=== PATIENT | female | born 1930 | race Caucasian/White ===

== ENCOUNTER 2017-08-19 08:56 | Outpatient (CLI) | payer MEDICARE | END 2017-08-19 08:57 | disposition EMS.NT | LOC: EMS 08:56 | PROVIDERS: ATTEND Surgery | DX: Z03.89 Encounter for observation for other suspected diseases and conditions ruled out (principal); W01.0XXA Fall on same level from slipping, tripping and stumbling without subsequent striking against object, initial encounter; Y92.009 Unspecified place in unspecified non-institutional (private) residence as the place of occurrence of the external cause ==

== ENCOUNTER 2017-08-22 11:13 | Outpatient (CLI) | payer MEDICARE ==
[2017-08-22 19:08] LABS: HEMOGLOBIN A1C 1.34 g/dL
== END 2017-08-22 11:14 | disposition home or self-care (01) ==
LOC: LAB.F 11:13
PROVIDERS: ATTEND Physician Assistant
DX: E11.9 Type 2 diabetes mellitus without complications (principal)
CPT/HCPCS: 36415; 83036

== ENCOUNTER 2018-04-23 15:08 | Emergency (ER) | payer MEDICARE, OTHER ==
--- NOTE | 2018-04-23 16:27 | ED Physician Documentation ---
PD HPI ABD PAIN - Stated complaint Stated Complaint: ABD PX/D/CONST - Chief complaint Chief Complaint: Abd Pain - History obtained from History obtained from: Patient - History of Present Illness Timing - onset: How many weeks ago (few) Timing - duration: Weeks (few) Timing - details: Gradual onset, Still present, Waxing and waning Quality: Sharp, Pain Location: Suprapubic, Other (perirectal area). No: All over / everywhere Radiation: No: Lower back, Left flank, Right flank Improved by: No: Eating Worsened by: Other (feels worse with BM). No: Eating Associated symptoms: Constipation. No: Fever, Nausea, Vomiting Similar symptoms before: Diagnosis (flagyl worked well along with stool softeners; dx of constipation) Review of Systems Constitutional: denies: Fever, Chills, Myalgias Nose: denies: Rhinorrhea / runny nose, Congestion Throat: denies: Sore throat Cardiac: denies: Palpitations Respiratory: denies: Dyspnea, Cough GI: reports: Other (rectal area pain and fullness.). denies: Abdominal Pain PD PAST MEDICAL HISTORY - Past Medical History Cardiovascular: None Respiratory: None Neuro: None GI: None - Present Medications Home Medications: Ambulatory Orders Medication Instructions Recorded Confirmed Hydrocortisone Acetate [Anucort-Hc] 25 mg RC BID #10 supp.rect 04/23/18 Lidocaine Ointment 5% [Xylocaine 1 gm TOP QID PRN #1 tube 04/23/18 Ointment 5%] - Allergies Allergies/Adverse Reactions: Allergies Allergy/AdvReac Type Severity Reaction Status Date / Time Unable to Assess Allergy Verified 04/23/18 15:26 PD ED PE NORMAL - Vitals Vital signs reviewed: Yes - General General: Alert and oriented X 3, No acute distress, Well developed/nourished - HEENT HEENT: PERRL, Moist mucous membranes - Neck Neck: Supple, no meningeal sign, No adenopathy - Cardiac Cardiac: RRR, No murmur - Respiratory Respiratory: Clear bilaterally - Abdomen Abdomen: Soft, Non tender - Female Female : Deferred - Rectal Rectal: Other (inflammation perirectal without breakdown, vesicles, nor focal fluctuance. ) Results - Vitals Vitals: Oxygen O2 Source Room air PD MEDICAL DECISION MAKING - ED course Complexity details: considered differential (no impaction on rectal and the perirectal swelling and inflammation appears like irritation and not infection and could be limiting her stool output due to pain. I did not feel hemorrhoids. ), d/w patient Departure - Departure Disposition: 01 Home, Self Care Clinical Impression: Rectal pain, Perirectal inflammation Condition: Stable Record reviewed to determine appropriate education?: Yes Follow-Up: Stephy Curtis PA [Primary Care Provider] - Prescriptions: Hydrocortisone Acetate [Anucort-Hc] 25 mg RC BID #10 supp.rect Lidocaine Ointment 5% [Xylocaine Ointment 5%] 1 gm TOP QID PRN #1 tube PRN Reason: Pain Comments: It looks to be just some inflammation in the perirectal area. You can use some lidocaine gel for discomfort. Also suggest a steroid suppository twice daily for the next 5 days to decrease inflammation. Use a stool softener such as Metamucil or docusate twice daily for the next few days. He can continue the Metamucil. The goal would be for soft stools that are oatmeal like and not too watery so that they come out easily without having to have pressure. Follow-up with your primary care later this week for recheck, call for an appointment tomorrow. You can use Tylenol 3-4 times a day if needed for pain. Discharge Date/Time: 04/23/18 17:58
[2018-04-23] MEDS ORDERED: ACETAMINOPHEN 325 MG TABLET PO STA (17:07)
[2018-04-23] MEDS ORDERED: HYDROCORTISONE 25 MG SUPPOSITORY PR STA (17:07)
[2018-04-23] MEDS ORDERED: LIDOCAINE OINTMENT 5% 35.44 GM TUBE TOP STA (17:07)
[2018-04-23 17:40] VITALS: BP 132/69
== END 2018-04-23 17:58 | disposition home or self-care (01) ==
LOC: ED 15:08
DX: K62.89 Other specified diseases of anus and rectum (principal)
CPT/HCPCS: 99283; A9270; J3490

== ENCOUNTER 2018-11-15 10:18 | Emergency (ER) | payer MEDICARE, OTHER ==
[2018-11-15 11:12] LABS: BASOPHILS % (AUTO) 0.6 %; EOSINOPHILS # (AUTO) 0.1 10^3/uL (0.0-0.7); EOSINOPHILS % (AUTO) 1.6 %; HGB - HEMOGLOBIN 13.9 g/dL (12.0-16.0); LYMPHOCYTES # (AUTO) 1.2 10^3/uL (1.5-3.5); LYMPHOCYTES % (AUTO) 15.8 %; MEAN CORPUSCULAR HEMOGLOBIN 31.8 pg (27.0-31.0); MEAN CORPUSCULAR HGB CONC 34.7 g/dL (32.0-36.0); MEAN CORPUSCULAR VOLUME 91.6 fL (81.0-99.0); MONOCYTES # (AUTO) 0.5 10^3/uL (0.0-1.0); MONOCYTES % (AUTO) 6.9 %; NEUTROPHILS # (AUTO) 5.9 10^3/uL (1.5-6.6); NEUTROPHILS % (AUTO) 75.1 %; PLT - PLATELET COUNT 226 10^3/uL (130-450); RED BLOOD COUNT 4.37 10^6/uL (4.20-5.40); RED CELL DISTRIBUTION WIDTH 14.3 % (12.0-15.0); WHITE BLOOD COUNT 7.9 x10^3/uL (4.8-10.8)
[2018-11-15 11:33] LABS: ALBUMIN 3.5 g/dL (3.2-5.5); ALBUMIN/GLOBULIN RATIO 0.8 (1.0-2.2); BILIRUBIN,TOTAL 1.7 mg/dL (0.2-1.0); CALCIUM 9.5 mg/dL (8.5-10.3); CREATININE 1.2 mg/dL (0.4-1.0); TOTAL PROTEIN 7.7 g/dL (6.7-8.2)
[2018-11-15 14:28] LABS: BILIRUBIN,URINE NEGATIVE (NEGATIVE); GLUCOSE, URINE (UA) NEGATIVE (NEGATIVE); KETONES,URINE (UA) NEGATIVE (NEGATIVE); LEUKOCYTE ESTERASE, URINE TRACE (NEGATIVE); NITRITE,URINE NEGATIVE (NEGATIVE); OCCULT BLOOD,URINE NEGATIVE (NEGATIVE); PH,URINE 6.5 PH (5.0-7.5); PROTEIN,URINE NEGATIVE (NEGATIVE); UROBILINOGEN,URINE 0.2 (NORMAL) E.U./dL (NORMAL)
[2018-11-15 14:33] LABS: CLARITY,URINE CLOUDY (CLEAR)
[2018-11-15 14:46] LABS: BACTERIA,URINE Moderate /HPF (None Seen); RBC,URINE 0-5 /HPF (0-5); SQUAMOUS EPITHELIAL CELL,UR MOD Squamous (<= Few)
--- NOTE | 2018-11-15 15:55 | CT Report ---
Reason: fall Procedure Date: 11/15/2018 Accession Number: [id number] / [id number] Procedure: CT - Head W/O CPT Code: FULL RESULT: EXAM: CT HEAD EXAM DATE: 11/15/2018 11:32 AM. CLINICAL HISTORY: Fall. COMPARISON: None. TECHNIQUE: Multiaxial CT images were obtained from the foramen magnum to the vertex. Reformats: Sagittal and coronal. IV contrast: None. In accordance with CT protocol optimization, one or more of the following dose reduction techniques were utilized for this exam: automated exposure control, adjustment of mA and/or KV based on patient size, or use of iterative reconstructive technique. FINDINGS: Parenchyma: No intraparenchymal hemorrhage. No evidence of mass, midline shift, or CT findings of infarction. Limon-white differentiation is distinct. Symmetric, mild periventricular hypodensity consistent with microvascular ischemic change. Extraaxial Spaces: Normal for age. No subdural or epidural collections identified. Ventricles: Normal in size and position. Sinuses and Orbits: Imaged paranasal sinuses, orbits, and mastoids show no significant abnormality. Bones: No evidence of fracture or calvarial defect. Other: None. IMPRESSION: No evidence of fracture or intracranial injury. Exam findings are within expected limits for age. RADIA
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
--- NOTE | 2018-11-15 16:33 | CT Report ---
Reason: fall Procedure Date: 11/15/2018 Accession Number: [id number] / [id number] Procedure: CT - Cervical Spine W/O CPT Code: FULL RESULT: EXAM: CT CERVICAL SPINE WITHOUT CONTRAST DATE: 11/15/2018 11:32 AM. HISTORY: Fall. COMPARISONS: None available. TECHNIQUE: Thin-section axial images were acquired of the cervical spine without contrast. Post-processing: Coronal and sagittal reformats. Other: None. In accordance with CT protocol optimization, one or more of the following dose reduction techniques were utilized for this exam: automated exposure control, adjustment of mA and/or KV based on patient size, or use of iterative reconstructive technique. FINDINGS: Alignment: No scoliosis or spondylolisthesis. Bones/discs: The bones are osteopenic. No acute fracture, subluxation, or compression deformity. Mild to moderate multilevel degenerative joint and disk disease. The craniocervical junction is intact. Musculature: Unremarkable. Other: The paravertebral and prevertebral soft tissues are unremarkable. The lung apices are clear. Heterogeneous appearance of the thyroid gland. Probable hypodense nodule in the left thyroid lobe measuring 1.5 x 1.2 cm, which could be further evaluated with ultrasound on a nonemergent basis. Calcified nodule in the left thyroid lobe measuring 3.5 mm. IMPRESSION: Osteopenia. No acute fracture or malalignment of the cervical spine. [facility]
[2018-11-15 16:54] VITALS: BP 155/80
== END 2018-11-15 16:54 | disposition home or self-care (01) ==
LOC: ED 10:18
DX: S00.531A Contusion of lip, initial encounter (principal); S00.81XA Abrasion of other part of head, initial encounter; W06.XXXA Fall from bed, initial encounter; Y92.009 Unspecified place in unspecified non-institutional (private) residence as the place of occurrence of the external cause; E11.9 Type 2 diabetes mellitus without complications; I10 Essential (primary) hypertension; F03.90 Unspecified dementia, unspecified severity, without behavioral disturbance, psychotic disturbance, mood disturbance, and anxiety; Z79.4 Long term (current) use of insulin; Z79.01 Long term (current) use of anticoagulants
CPT/HCPCS: 36415; 70450; 72125; 80053; 81001; 81003; 83690; 84484; 85025; 87086; 99283

== ENCOUNTER 2019-08-13 10:15 | Outpatient (CLI) | payer MEDICARE, OTHER ==
[2019-08-13 18:04] LABS: ALBUMIN 3.7 g/dL (3.2-5.5); ALBUMIN/GLOBULIN RATIO 0.9 (1.0-2.2); BILIRUBIN,TOTAL 1.5 mg/dL (0.2-1.0); CALCIUM 9.9 mg/dL (8.5-10.3); CREATININE 1.3 mg/dL (0.4-1.0); TOTAL PROTEIN 7.7 g/dL (6.7-8.2)
[2019-08-13 18:07] LABS: HB2 TOTAL 13.4 g/dL; HEMOGLOBIN A1C 0.62 g/dL; HEMOGLOBIN A1C % 6.4 % (4.6-6.2)
== END 2019-08-13 10:16 | disposition home or self-care (01) ==
LOC: LAB.S 10:15
PROVIDERS: ATTEND Physician Assistant
DX: E11.9 Type 2 diabetes mellitus without complications (principal)
CPT/HCPCS: 36415; 80053; 83036

== ENCOUNTER 2020-01-02 10:10 | Outpatient (CLI) | payer MEDICARE, OTHER ==
--- NOTE | 2020-01-02 16:47 | CONSULTATION NOTE ---
Palliative Care Consultation - Referral Referring Provider: LILIANE Carrasco Time of Visit: 4829-3027 Referral setting: Home Referral Reason: Recurrent UTIs/Dementia - Information Sources Records reviewed: Previous records reviewed History/Review of Systems obtained from: Patient, Family (daughter/caregiver/ELIAN Campuzano) Exam limitations: Clinical condition (short term memory deficits due to dementia) - History of Present Illness Brief History of Present Illness: This is a quinn 89-year-old who is seen for initial palliative care consultation in her home with her daughter/D SANJIV Campuzano present. She has a history of moderate dementia and frequent urinary tract infections with a history of one episode of sepsis. The patient began to have a noted decline in August 2019 per her daughter's report. She has had approximately 3 urinary tract infections in the last 4 months. Prior to August 2019 the patient was not getting urinary tract infections. She is incontinent of bladder. There is no reported skin breakdown per the daughter. They routinely use Butt paste [id number] for application for skin protection. She is also had a decline in her overall appetite in the last few months. She enjoys breakfast and would be happy to have that in the morning in the evening. Her son-in-law is a wonderful montes and she enjoys the waffles that he prepares. She is a longstanding history of diabetes mellitus type 2 and is insulin- dependent with chronic kidney disease type III. Her blood glucose levels are monitored twice a day with an average range in the 150s. No reported episodes of hypoglycemia. In the mornings intermittently the patient will complain of some mild nausea that will resolve after eating. Her daughter/DPTatianna MONTEIRO's concern is in regards to the recent frequent UTIs. The patient does not like cranberry juice and will not consume it. She keeps a bottle of water by her chair and will drink water or iced tea throughout the day. Medical/Surgical History - Past Medical History Cardiovascular: reports: Hypertension, High cholesterol, Coronary artery disease, Deep vein thrombosis (LLE DVT), Other (Paroxysmal afib) Respiratory: reports: None Neuro: Dementia Endocrine/Autoimmune: reports: Type 2 diabetes (insulin dependent) GI: reports: None [employer]: reports: Ovarian cancer, Breast cancer : reports: Other (Frequent UTIs; CKD III) HEENT: reports: Chronic hearing loss Psych: reports: Depression Derm: reports: None Other Past Medical History: Hypomagnesemia - Past Surgical History General: reports: Cholecystectomy, Other (repair of ventral hernia; exploratory laprotomy) /[employer]: reports: Hysterectomy (total hysterectomy with bilateral salpingo- oophorectomy), Other (lumpectomy of left breast) Cardiovascular: reports: Coronary stent - Substance History Use: Uses substance without health or social issues: Tobacco (Former smoker and she began around age 21 and smoked for 20 years before quiting.), Alcohol (she drinks a glass of wine "once in a while.") Social History - Living Situation Living arrangement: At home Living Situation: With family (lives in a farmhouse with her daughter/DPTHANIA Campuzano and Tatianna's .) Support System: Patient grew up in [place], [place]. She then relocated to [place]. After her second she moved to [facility] at the encouragement of her loaiwjnn-so-oik where she would live with her, son, Akash on [facility] and his 5 days a week and then would spend the weekends with her daughter Tatianna. The patient enjoyed having a quieter life from her previous lifestyle and would be able to relax during the week and then enjoy the hustle and bustle of her daughter's home visiting with her great-grandson on the weekends. She has always been vivacious, friendly, and as her daughter puts it "leader of the pack." The patient was someone that was never one to sit down and was always on the go. She has friends all over. She continued to remain friends with approximately 8 women that at she attended high school with throughout her life. Only 2 of those women remain alive. There was an argument that resulted in the patient moving out of her son's Akash's house and moving in fully with her daughter Ttaianna over 2 years ago. Akash now only visits his mother twice a year. He does not offer Tatianna support. Tatianna's is extremely supportive and is very fond of his jbdksz-ji-odw and assists when he can. Tatianna retired from her job to attend to her mother and grandson. She has found this full the filling for her. Her other brother, Jeffry, relocated to [place] and will call to speak to the patient weekly and is available emotionally to provide support for Tatianna. Res Care comes to the home twice a week for 2 hours and will assist with showering and allows Tatianna to leave for local errands. The patient has 3 children, 2 boys and 1 girl. She is . Family History - Family History Family History: Mother: (Father with scoliosis of spine), Hypertension, Father: , Sister: , Cancer (malignant tumor of colon) Medications/Allergies - Medications Home Medications: Ambulatory Orders Medication Instructions Recorded Confirmed Apixaban [Eliquis] 5 mg PO BID 11/15/18 01/02/20 Cholecalciferol (Vitamin D3) 1 cap PO DAILY 11/15/18 11/15/18 [Vitamin D3] Cyanocobalamin (Vitamin B-12) 11/15/18 [Vitamin B-12] Insulin Glargine [Lantus Solostar] 35 units SQ BID 11/15/18 11/15/18 L.acid/L.casei/B.bif/B.colt/Fos 1 PO DAILY 11/15/18 [Probiotic Blend Capsule] Losartan [Cozaar] 100 mg PO DAILY 11/15/18 11/15/18 Metoprolol Succinate 200 mg PO DAILY 11/15/18 11/15/18 Multivitamin [Multiple Vitamins] 1 PO DAILY 11/15/18 [place]-3/Dha/Epa/Fish Oil [Fish Oil 1 PO DAILY 11/15/18 1,000 mg Softgel] Sertraline [Zoloft] 50 mg PO DAILY 11/15/18 11/15/18 hydroCHLOROthiazide 25 mg PO DAILY 11/15/18 11/15/18 [Hydrochlorothiazide] Omeprazole 40 mg PO DAILY 01/02/20 01/02/20 Tumeric 500 mg PO DAILY 01/02/20 - Allergies Allergies/Adverse Reactions: Allergies Allergy/AdvReac Type Severity Reaction Status Date / Time ciprofloxacin [From Cipro] Allergy Hives Verified 01/02/20 16:52 atorvastatin AdvReac Unknown Verified 01/02/20 16:52 Corticosteroids AdvReac Unknown Verified 01/02/20 16:52 (Glucocorticoids) metformin AdvReac Unknown Verified 01/02/20 16:52 Review of Systems - Constitutional Constitutional: reports: Fatigue, Weight stable (clothes continue to fit well) - Eyes Eyes: denies: Vision loss - Ears, Nose & Throat Ears, Nose & Throat: reports: Hearing loss, Hearing aids (does not wear her hearing aids) - Cardiovascular Cardiovascular: denies: Palpitations, Chest pain, Edema - Respiratory Respiratory: denies: Cough, Wheezing - Gastrointestinal Gastrointestinal: reports: Nausea (intermittent in the mornings that resolve with consumption of food). denies: Abdominal pain, Constipation, Vomiting - Genitourinary Genitourinary: reports: Frequency, Incontinence. denies: Dysuria - Musculoskeletal Musculoskeletal: reports: Joint pain (left knee that resolved), Assistive devices (ambulates with rollator) - Integumentary Integumentary: denies: Rash - Neurological Neurological: reports: Memory problems - Psychiatric Psychiatric: reports: Depression - Endocrine Endocrine: reports: Diabetes type 2 - Hematologic/Lymphatic Hematologic/Lymphatic: reports: Recurrent infections (Urinary tract infections since 08/2019) - All Other Systems All Other Systems: reports: Reviewed and negative Physical Exam - Vital Signs Temperature: 36.1 C Pulse Rate: 64 O2 Saturation: 96 (on RA) Blood Pressure: 118/63 (left wrist cuff) - Physical Exam General Appearance: positive: No acute distress, Alert, Other (OOB in recliner, well groomed, mild urine odor noted) Eyes Bilateral: positive: Normal inspection, Conjunctivae nml ENT: positive: Other (missing dentition, +MMM, +hard of hearing without hearing aids in place) Neck: positive: Nml inspection, Trachea midline, Other (no LAD) Cardiovascular: positive: Regular rate & rhythm, No murmur. negative: Decreased pulse(s) Respiratory: positive: No respiratory distress, Breath sounds nml. negative: Rales, Rhonchi Abdomen: positive: Non-tender, Soft, Nml bowel sounds, Other (+round). negative: Distended Skin: negative: Bruising, Rash Extremities: positive: Full ROM. negative: No pedal edema, Joint swelling Neurologic/Psychiatric: positive: Mood/affect nml, Disoriented to time (unable to state season or year) Palliative Care - POLST Patient has POLST: Yes POLST Status: DNR, Comfort Measures Pain: Pain improved (left knee) Tiredness/Fatigue: Severe (7-10) (sleeps from 9pm to 8AM and will have appx 2 naps per day) Drowsiness/Sedation: None Nausea: Moderate (4-6) Anorexia: None Dyspnea: None Depression: Moderate (4-6) Anxiety: Moderate (4-6) Feelings of wellbeing/Perceived Quality of Life: Fair Sleep: Sleeps well Constipation: No Performance Status: Patient is ambulatory and uses a Rollator within the home. There is good open space within the home to allow for the use of the Rollator. She had a recent fall last week in the bathroom without injury. She also has a transport wheelchair for use out in the community. She requires assistance with grooming and hygiene. She is incontinent of bladder. FAST 6D - Palliative Care Discussion: The patient and daughter both recognize the patient's overall functional and cogntivie decline. The patient herself recognizes that she is not as functional as she used to be and can often get discouraged by this. She finds enjoyment with foods that bring her pleasure such as sweets that are made by her son-in-law. She also has a wonderful relationship with her great grandson who is 10 years of age whom he calls Curly. When the grandson comes to visit they are often easily engaged. Otherwise, the patient is no longer able to read or follow shows due to her cognitive impairment. She relayed the loss of friends given the advancement of her age and has appropriate morning regarding this. Tatianna has support emotionally from her brother Jeffry as well as her . Tatianna recognizes the needs to provide self care in order to care for the patient. Both the patient and her daughter/DPOA wish to focus on comfort measures as the goal of care with a transition to hospice when appropriate. Results - Lab Results Lab results reviewed: Yes Lab and Imaging Results: 12/06/2018: HgA1C 8.5%, GFR 37 Impression and Recommendations - Palliative Care Impression: This is a quinn 89-year-old female who has moderately severe dementia, insulin- dependent diabetes mellitus, with a slowly progressive cognitive and functional decline. Palliative care to continue to provide symptom management support, anticipatory guidance and a transition to hospice when appropriate. Recommendations/Counseling Done: 1. Dementia. Chronic. Progressive. Supportive Care. Fall precautions. No behavioral concerns reported daughter. Encouraged use of rollator with ambulation. Given the patient's advanced age, dementia and chronic co- morbidities, a gradual decline is expected. Normalized taking intermittent naps during the day due to fatigue with patient as she is overall happy and doing tasks she enjoys. Directed daughter/DPOA to Alzheimer's association website for additional resources. 2. Frequent UTIs. Encouraged oral hydration during the day and pericare due to urinary incontinence. Recommended use of poise pads overnight with depends to control urinary saturation. Consider trial of concentrated cranberry supplement or d'mannose for UTI prophylaxis. 3. Insulin Dependent Type II Diabetes Mellitus. No hypoglycemic awareness. Given advanced age and co-morbidities at higher risk of hypoglycemia with associated higher morbidity. Goal HgA1C 7-8% given advanced age. If patient oral intake decreases will focus on dose reduction of insulin to avoid hypoglycemia events. 4. CKD stage III. Multifactorial due to age, diabetes mellitus type II and HTN. Avoid nephrotoxic medications. 5. HTN with history of paroxysmal afib. No cardiac awareness. Continue losartan for HTN and metoprolol for rate control. On anticoagulation with eliquis. Continue to monitor BP trends and adjust antihypertensive medications as needed. 6. Advanced care planning. Previous pulsed from [place] dated 2015 indicated DNAR are with selective treatment. Reviewed goals of care today with patient and daughter/D POA with a goal to focus on comfort and transition to hospice when appropriate. Reviewed gradual decline regarding dementia and hospice criteria related to the diagnosis with the daughter. [place] POLST completed with selection of DNAR are with comfort focused treatment and recommendation to daughter to place on the fridge in the home as well as to provide copies to her siblings and the patient's primary care provider. Previous POLST voided. Time Spent: Total time spent 110 minutes with greater than 50% of time spent in counseling family and patient regarding escalation vs de-escalation of care, palliative/hospice philosophy as well as care coordination, examination of patient, review of symptom management and anticipatory guidance. Disclaimer: The chart note was formulated using voice recognition technology and unfortunately sound alike errors may occur.
== END 2020-01-02 10:11 | disposition home or self-care (01) ==
LOC: PC 10:10
PROVIDERS: ATTEND Nurse Practitioner Family
DX: Z51.5 Encounter for palliative care (principal); F03.90 Unspecified dementia, unspecified severity, without behavioral disturbance, psychotic disturbance, mood disturbance, and anxiety; R32 Unspecified urinary incontinence; E11.22 Type 2 diabetes mellitus with diabetic chronic kidney disease; I12.9 Hypertensive chronic kidney disease with stage 1 through stage 4 chronic kidney disease, or unspecified chronic kidney disease; N18.3 Chronic kidney disease, stage 3 (moderate); I48.0 Paroxysmal atrial fibrillation; R53.83 Other fatigue; Z79.899 Other long term (current) drug therapy; Z79.01 Long term (current) use of anticoagulants; Z79.4 Long term (current) use of insulin; Z87.440 Personal history of urinary (tract) infections; Z87.891 Personal history of nicotine dependence; Z66 Do not resuscitate
CPT/HCPCS: 99345

== ENCOUNTER 2020-01-29 10:05 | Outpatient (CLI) | payer MEDICARE, OTHER ==
--- NOTE | 2020-01-29 17:47 | CONSULTATION NOTE ---
Palliative Care Follow Up - Referral Referring Provider: Valencia Curtis PA-C Time of Visit: 4854-2105 Referral setting: Home Referral Reason: Dementia and Recurrent UTIs - Information Sources Records reviewed: Previous records reviewed History/Review of Systems obtained from: Patient, Family (daughter/ELIAN Campuzano) Exam limitations: Clinical condition (short term memory deficits due to dementia) - History of Present Illness Update Brief HPI Update: This is a quinn 89-year-old woman who is seen in follow-up today for her moderate dementia and frequent urinary tract infections with a history of one episode of sepsis. Patient recently has had 3 urinary tract infections in the last 4 to 5 months. Prior to August 2019 the patient with this without a history of frequent urinary tract infections. She is incontinent of bladder. On last palliative care visit recommended initiation of cranberry concentrate capsules 500 mg to take 1 capsule twice daily for UTI prophylaxis. Patient has been tolerating well. Patient denies increased urinary frequency or dysuria. There is no evidence of skin breakdown and the patient's daughter continue uses Butt paste [id number] periodically for skin protection. The patient has a longstanding history of diabetes mellitus type 2 and is insulin-dependent with chronic kidney disease. Her blood glucose recently has ranged from 1 37-1 92. No reported episodes of hypoglycemia. The patient has had a stabilization of her appetite and with the patient and the daughter reports it is "good." The patient herself comments on the wonderful things that her son-in-law prepares as he is a wonderful montes. She continues to enjoy a breakfast foods routinely. She typically is also having a snack before bed limiting any episodes of hypoglycemia. Past medical history includes hypertension, hyperlipidemia, coronary artery disease, left lower extremity DVT, paroxysmal A. fib, dementia, type 2 diabetes insulin-dependent, ovarian cancer, breast cancer, frequent urinary tract infections, chronic kidney disease stage III, depression. Social History - Living Situation Living arrangement: At home Living Situation: With family (daughter/ELIAN Campuzano and Aaron HERNANDEZ) Support System: Patient resides in a farm house with her daughter and son-in-law. The patient has 3 children, 2 boys and 1 girl. She is . Rest care comes to the home twice a week for 2 hours of assist with showering and allows Tatianna to leave the home for local errands. 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 The patient, her daughter, and her great-grandson went out to [place] recently and [place] ferry. The patient herself looks forward to these outings. The family has a dog named Enriqueta whom the patient is quite fund of. Medications/Allergies - Medications Home Medications: Ambulatory Orders Medication Instructions Recorded Confirmed Apixaban [Eliquis] 5 mg PO BID 11/15/18 01/02/20 Cholecalciferol (Vitamin D3) 1 cap PO DAILY 11/15/18 11/15/18 [Vitamin D3] Cyanocobalamin (Vitamin B-12) 11/15/18 [Vitamin B-12] Insulin Glargine [Lantus Solostar] 35 units SQ BID 11/15/18 11/15/18 L.acid/L.casei/B.bif/B.colt/Fos 1 PO DAILY 11/15/18 [Probiotic Blend Capsule] Losartan [Cozaar] 100 mg PO DAILY 11/15/18 11/15/18 Metoprolol Succinate 200 mg PO DAILY 11/15/18 11/15/18 Multivitamin [Multiple Vitamins] 1 PO DAILY 11/15/18 [place]-3/Dha/Epa/Fish Oil [Fish Oil 1 PO DAILY 11/15/18 1,000 mg Softgel] Sertraline [Zoloft] 50 mg PO DAILY 11/15/18 11/15/18 hydroCHLOROthiazide 25 mg PO DAILY 11/15/18 11/15/18 [Hydrochlorothiazide] Omeprazole 40 mg PO DAILY 01/02/20 01/02/20 Tumeric 500 mg PO DAILY 01/02/20 Cranberry 500 mg PO BID 01/29/20 01/29/20 - Allergies Allergies/Adverse Reactions: Allergies Allergy/AdvReac Type Severity Reaction Status Date / Time ciprofloxacin [From Cipro] Allergy Hives Verified 01/02/20 16:52 atorvastatin AdvReac Unknown Verified 01/02/20 16:52 Corticosteroids AdvReac Unknown Verified 01/02/20 16:52 (Glucocorticoids) metformin AdvReac Unknown Verified 01/02/20 16:52 Review of Systems - Constitutional Constitutional: reports: Fatigue, Weight stable - Eyes Eyes: reports: Vision loss - Ears, Nose & Throat Ears, Nose & Throat: reports: Hearing loss, Hearing aids (typically does not wear them) - Cardiovascular Cardiovascular: reports: Lightheadedness (occasionally when standing). denies: Palpitations, Chest pain - Respiratory Respiratory: denies: Cough, Wheezing - Genitourinary Genitourinary: reports: Incontinence. denies: Dysuria, Frequency - Musculoskeletal Musculoskeletal: reports: Assistive devices. denies: Joint pain - Integumentary Integumentary: denies: Rash - Neurological Neurological: reports: Memory problems. denies: Headache - Psychiatric Psychiatric: reports: Depression - Endocrine Endocrine: reports: Diabetes type 2 - Hematologic/Lymphatic Hematologic/Lymphatic: reports: Recurrent infections (UTIs since 08/2019) - All Other Systems All Other Systems: reports: Reviewed and negative Physical Exam - Vital Signs Temperature: 36.4 C Pulse Rate: 83 O2 Saturation: 94 (on RA at rest) Blood Pressure: 108/68 (right wrist cuff sitting) - Physical Exam General Appearance: positive: No acute distress, Alert, Other (sitting in recliner in common area, well groomed, mild urine odor noted) Eyes Bilateral: positive: Normal inspection ENT: positive: No signs of dehydration, Other (missing dentition, +[place]) Neck: positive: Trachea midline. negative: Carotid bruit Cardiovascular: positive: Regular rate & rhythm, No murmur Respiratory: positive: No respiratory distress, Breath sounds nml Abdomen: positive: Non-tender, Soft, Nml bowel sounds Skin: positive: No symptoms Extremities: positive: Full ROM, No pedal edema Neurologic/Psychiatric: positive: Mood/affect nml, Disoriented to time Comments/Other: standin/75, HR 80 without reported dizziness with right wrist cuff Palliative Care - POLST Patient has POLST: Yes POLST Status: DNR, Comfort Measures Pain: No pain Tiredness/Fatigue: Moderate (4-6) (takes naps during the day) Nausea: None Anorexia: None Depression: None Feelings of wellbeing/Perceived Quality of Life: Fair Sleep: Sleeps well Constipation: No Performance Status: Patient is ambulatory and uses a Rollator within the home. No recent falls reported. She uses a transport wheelchair out in the community. She requires assistance with grooming and hygiene. She is incontinent of bladder. FAST 6D - Palliative Care Discussion: Both the patient and her daughter/D POA are in good spirits today. There moods have been afflicted with the recent change in the weather as well as some local interactions. When the weather is nice and warmer they often go on outings. The patient herself likes to be outdoors. She continues to find enjoyment with foods that are made by her son-in-law. She recently had a visit from 1 of her daughters friends who also has dementia. She also has a wonderful relationship with her great-grandson who is 11 years of age whom he calls . When the grandson visits almost on a daily basis they are easily engaged and watch shows together like mine craft. This gives the patient great jackelyn and something to look forward to. Although the patient has had an overall functional and cognitive decline she is recently stabilized and both she and her daughter wish to focus on comfort measures as a goal of care with a transition to hospice when appropriate. Impression and Recommendations - Palliative Care Impression: This is an 89-year-old female with moderately severe dementia, insulin-dependent diabetes, with a slow, progressive cognitive and functional decline. Patient has tolerated introduction of cranberry concentrate supplementation for UTI prophylaxis. No reports of urinary symptoms. Palliative care to continue to provide symptom management support, anticipatory guidance and transition to hospice when appropriate. Recommendations/Counseling Done: 1. Frequent UTIs. No recent UTI reported. Continue to encourage oral hydration throughout the day and stefan-care due to urinary incontinence. Daughter has had good success with use of poise pads overnight with control of urinary saturation. Continue concentrated cranberry supplementation 5 00mg take 1 capsule twice daily for UTI prophylaxis. Provided lab slip and urinary specimen cup as well as nun's cap For daughter for future use if patient develops urinary tract symptoms such as fever, dysuria, increased confusion. Advised daughter to notify [facility] of symptoms so these may be addressed. and reviewed collection of clean-catch urine. Daughter would take specimen to [facility] lab. 2. Dementia. Chronic. Progressive. Supportive care. Fall precautions. No overall behavioral concerns reported by the daughter. Given the patient's advanced age, dementia, and chronic comorbidities, a gradual decline as expected. 3. Insulin-dependent type 2 diabetes mellitus. No hypoglycemic awareness. Patient has consuming a snack prior to bed limiting nausea in the mornings. Goal hemoglobin A1c is 7 to 8% given patient's advanced age. Continue current medication regimen as ordered. Presently the patient's oral intake is well controlled. If patient's intake begins to decrease would focus on dose reduction of medications to avoid hypoglycemic events. 4. Advanced care planning. POLST previously completed and is in the home as DN AR and comfort measures. Patient wishes to focus on quality of life. She is looking forward to upcoming outings given the recent change in weather as well as her great grandson's visits. Both the patient and her daughter wish to focus on comfort interventions in the future. F/u PRN at this time as patient does not have acute needs or high symptom burden. Daughter/DPOA and patient is aware that palliative care is available if there is a sudden change in condition or if there is further support and assistance needed in advanced care planning for problem solving as needed. Time Spent: Total time spent 45 minutes with greater than 50% of this spent in counseling and coordination of care with patient and daughter/DPOA; review of urine specimen collection; examination of patient; review of symptom management and anticipatory guidance. disclaimer: The chart note was formulated using voice recognition technology and unfortunately sound alike errors may occur.
== END 2020-01-29 10:06 | disposition home or self-care (01) ==
LOC: PC 10:05
PROVIDERS: ATTEND Nurse Practitioner Family
DX: Z51.5 Encounter for palliative care (principal); F03.90 Unspecified dementia, unspecified severity, without behavioral disturbance, psychotic disturbance, mood disturbance, and anxiety; E11.22 Type 2 diabetes mellitus with diabetic chronic kidney disease; I12.9 Hypertensive chronic kidney disease with stage 1 through stage 4 chronic kidney disease, or unspecified chronic kidney disease; N18.3 Chronic kidney disease, stage 3 (moderate); R32 Unspecified urinary incontinence; I48.91 Unspecified atrial fibrillation; Z79.899 Other long term (current) drug therapy; Z79.4 Long term (current) use of insulin; Z79.01 Long term (current) use of anticoagulants; Z87.440 Personal history of urinary (tract) infections; Z66 Do not resuscitate
CPT/HCPCS: 99349

== ENCOUNTER 2020-04-29 10:30 | Outpatient (CLI) | payer MEDICARE, OTHER ==
--- NOTE | 2020-04-29 14:10 | CONSULTATION NOTE ---
Palliative Care Follow Up - Referral Referring Provider: Valencia Curtis PA-C Time of Visit: [id number] Referral setting: Home Referral Reason: Dementia/Recurrent UTIs/Labs - Information Sources Records reviewed: Previous records reviewed History/Review of Systems obtained from: Patient, Family (daughter/DPTHANIA Campuzano present for visit) Exam limitations: Clinical condition (cognitive impairment due to dementia) - History of Present Illness Update Brief HPI Update: This is a quinn 89-year-old woman who is seen in follow-up today for her moderate dementia, frequent urinary tract infections with a history of sepsis, and lab obtainment. The patient has a history of frequent urinary tract infections. She has not had any recent infections in the last several months. She continues on cranberry concentrate capsules 500 mg twice daily for UTI prophylaxis. The patient continues to tolerate this well. There is no changes to her frequency or reports of dysuria. She continues to maintain an overall stable oral intake. The patient and the daughter both report that she is doing well. Her clothes continue to fit well. She consumes meals 3 times a day and eats all that is given to her. The patient has a history of diabetes mellitus type 2 and is insulin-dependent with chronic kidney disease. She recently had a high in the morning fasting of 316 on 04/20. Typically her range upon review of her blood glucose log has been 121-316. No reported episodes of hypoglycemia. And the patient's daughter recently took her to her primary care provider where labs were attempted and were not able to be obtained. It is difficult for the patient to leave the home and the daughter/DPOA requested for Palliative Care to preform a follow-up visit with obtainment of labwork for monitoring of the patient's chronic diseases. The patient is presently fasting for lab work obtainment. Past medical history includes hypertension, hyperlipidemia, coronary artery disease, left lower extremity DVT, paroxysmal A. fib, dementia, type 2 diabetes insulin-dependent, ovarian cancer, chronic kidney disease stage III, breast cancer, frequent urinary tract infections, depression. Social History - Living Situation Living arrangement: At home Living Situation: With family (daughter/DPOA and DAVID Aaron) Support System: Patient resides in a farm house with her daughter and son-in-law. The patient has 3 children, 2 boys and 1 girl. She is . Res care comes to the home twice a week for 2 hours of assistance with showering. 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 With the recent change in the temperature with sinusitis the patient has been sitting out on the porch. She enjoys watching the bird feeder specifically the humming birds that come. Family dog is Nutmeg. Medications/Allergies - Medications Home Medications: Ambulatory Orders Medication Instructions Recorded Confirmed Apixaban [Eliquis] 5 mg PO BID 11/15/18 01/02/20 Cholecalciferol (Vitamin D3) 1 cap PO DAILY 11/15/18 11/15/18 [Vitamin D3] Cyanocobalamin (Vitamin B-12) 11/15/18 [Vitamin B-12] Insulin Glargine [Lantus Solostar] 35 units SQ BID 11/15/18 11/15/18 L.acid/L.casei/B.bif/B.colt/Fos 1 PO DAILY 11/15/18 [Probiotic Blend Capsule] Losartan [Cozaar] 100 mg PO DAILY 11/15/18 11/15/18 Metoprolol Succinate 200 mg PO DAILY 11/15/18 11/15/18 Multivitamin [Multiple Vitamins] 1 PO DAILY 11/15/18 [place]-3/Dha/Epa/Fish Oil [Fish Oil 1 PO DAILY 11/15/18 1,000 mg Softgel] Sertraline [Zoloft] 50 mg PO DAILY 11/15/18 11/15/18 hydroCHLOROthiazide 25 mg PO DAILY 11/15/18 11/15/18 [Hydrochlorothiazide] Omeprazole 40 mg PO DAILY 01/02/20 01/02/20 Tumeric 500 mg PO DAILY 01/02/20 Cranberry 500 mg PO BID 01/29/20 01/29/20 - Allergies Allergies/Adverse Reactions: Allergies Allergy/AdvReac Type Severity Reaction Status Date / Time ciprofloxacin [From Cipro] Allergy Hives Verified 01/02/20 16:52 atorvastatin AdvReac Unknown Verified 01/02/20 16:52 Corticosteroids AdvReac Unknown Verified 01/02/20 16:52 (Glucocorticoids) metformin AdvReac Unknown Verified 01/02/20 16:52 Review of Systems - Constitutional Constitutional: reports: Weight stable, Other (naps frequently during the day). denies: Fever - Eyes Eyes: reports: Vision loss - Ears, Nose & Throat Ears, Nose & Throat: reports: Hearing loss, Hearing aids (typically does not wear) - Cardiovascular Cardiovascular: denies: Chest pain, Edema - Respiratory Respiratory: denies: Cough - Gastrointestinal Gastrointestinal: reports: Good appetite. denies: Abdominal pain, Abdominal distention, Constipation, Diarrhea, Vomiting - Genitourinary Genitourinary: reports: Incontinence. denies: Dysuria, Frequency - Musculoskeletal Musculoskeletal: reports: Assistive devices. denies: Joint pain - Integumentary Integumentary: denies: Rash - Neurological Neurological: reports: Memory problems - Psychiatric Psychiatric: denies: Depression - Endocrine Endocrine: reports: Diabetes type 2 - Hematologic/Lymphatic Hematologic/Lymphatic: reports: Recurrent infections (UTIs, no recent UTIs) - All Other Systems All Other Systems: reports: Reviewed and negative (ROS limited as patient is a poor historian due to dementia. ROS is supplemented by daughter.) Physical Exam - Vital Signs Temperature: 36.4 C Pulse Rate: 64 O2 Saturation: 95 (on RA at rest) Blood Pressure: 125/75 (left wrist cuff) - Physical Exam General Appearance: positive: No acute distress, Alert, Other (sitting in recliner in common area, well groomed) Eyes Bilateral: positive: Normal inspection ENT: positive: No signs of dehydration, Other (+missing teeth) Neck: positive: Trachea midline Cardiovascular: positive: Regular rate & rhythm, No murmur Respiratory: positive: No respiratory distress, Breath sounds nml Abdomen: positive: Non-tender, Soft, Nml bowel sounds Skin: positive: No symptoms Extremities: positive: No pedal edema Neurologic/Psychiatric: positive: Mood/affect nml, Disoriented to time, Other (Pleasant and cheerful) Palliative Care - POLST Patient has POLST: Yes POLST Status: DNR, Comfort Measures Pain: No pain Tiredness/Fatigue: Moderate (4-6) (naps throughout the day) Nausea: None Anorexia: None Depression: None Sleep: Sleeps well Constipation: No Performance Status: Patient is ambulatory and uses a Rollator within the home. She uses a transport wheelchair out in the community. She requires assistance with grooming and hygiene. She is incontinent of bladder. No recent falls. FAST 6D - Palliative Care Discussion: The patient has been doing quite well. She is enjoying going outside due to the change in the weather. The patient herself enjoys being outdoors and monitoring her daughter as she attends to her gardening. She recently enjoyed a wonderful Mother's Day and was able to relay the lemon marring pie that her son-in-law prepared for her. She is looking forward to her upcoming birthday. The patient has stabilized and her overall functional and cognitive decline at this time. She has not had any recent urinary tract infections and has been trying to optimize her liquid oral intake throughout the day. Both the patient and her daughter wishes to focus on comfort measures as a goal of care with a transition to hospice when appropriate. Impression and Recommendations - Palliative Care Impression: This is a quinn 89-year-old female with moderate dementia, insulin-dependent diabetes, who has stabilized and her functional and cognitive decline at present. She has been doing quite well. She has not had any recent urinary tract infections since implementation of cranberry supplementation for UTI prophylaxis and increase in her overall liquid intake. Lab work was obtained for patient's primary care provider. Palliative care to continue to provide support for symptom management, anticipatory guidance and a transition to hospice when medically appropriate. Recommendations/Counseling Done: 1. Dementia. Chronic. Progressive. Supportive Care. Fall precautions. No behavioral concerns by daughter. On no disease modifying agents. Given the patient's advanced age, dementia and chronic co-morbidities, a gradual decline is expected. 2. Frequent UTIs. No recent UTIs reported presently without urinary tract symptoms. Continue to encourage oral hydration throughout the day and good stefan- care due to urinary incontinence. Continue concentrated cranberry supplements 5 mg take 1 capsule twice daily for UTI prophylaxis. Within the home there is a lab slip and urine specimen cup for obtainment of urine specimen if the patient develops urinary tract symptoms and the daughter/D POA is aware to notify LICSW if development of symptoms to address. 3. Insulin-dependent type 2 diabetes mellitus. No hypoglycemic awareness. Recent high blood glucose level of 316. Goal hemoglobin A1c is 7 to 8% given the patient's advanced age and reduction of hypoglycemic events. Continue current medication regimen as ordered. Hemoglobin A1c obtained today to be sent to patient's primary care provider for review. 4. Advance care planning. POLST to remains in place as DN AR and comfort measures. Patient wishes to focus on quality of life. She is recently had stabilization of her functional and cognitive status and is enjoying the warmer weather as well as her great grandson for visits the home regularly. All lab work obtained for PCP and dropped off at [facility] lab. Daughter/D POA aware to follow-up with PCP in approximately 7 business days for results. Has the patient does not have any acute needs or high symptom burden we will follow-up as needed and will touch base in several months regarding need. Daughter/POA and patient are aware that palliative care is available if there is a sudden change in condition or if there is further support and insisted needed and advance care planning. Time Spent: Total time spent 40 minutes with greater than 50% of this spent in counseling and coordination of care with patient and daughter/DPOA; examination of patient; lab obtainment; and anticipatory guidance. Disclaimer: The chart note was formulated using voice recognition technology and unfortunately sound alike errors may occur.
== END 2020-04-29 10:31 | disposition home or self-care (01) ==
LOC: PC 10:30
PROVIDERS: ATTEND Nurse Practitioner Family
DX: Z51.5 Encounter for palliative care (principal); F03.90 Unspecified dementia, unspecified severity, without behavioral disturbance, psychotic disturbance, mood disturbance, and anxiety; I12.9 Hypertensive chronic kidney disease with stage 1 through stage 4 chronic kidney disease, or unspecified chronic kidney disease; E11.22 Type 2 diabetes mellitus with diabetic chronic kidney disease; N18.3 Chronic kidney disease, stage 3 (moderate); R53.83 Other fatigue; I48.0 Paroxysmal atrial fibrillation; Z79.899 Other long term (current) drug therapy; Z79.4 Long term (current) use of insulin; Z79.01 Long term (current) use of anticoagulants; Z66 Do not resuscitate; Z87.440 Personal history of urinary (tract) infections
CPT/HCPCS: 99349

== ENCOUNTER 2020-04-29 11:10 | Outpatient (CLI) | payer MEDICARE, OTHER ==
[2020-04-29 12:13] LABS: BASOPHILS % (AUTO) 0.5 %; EOSINOPHILS # (AUTO) 0.3 10^3/uL (0.0-0.7); HGB - HEMOGLOBIN 13.9 g/dL (12.0-16.0); LYMPHOCYTES # (AUTO) 2.1 10^3/uL (1.5-3.5); LYMPHOCYTES % (AUTO) 33.6 %; MONOCYTES # (AUTO) 0.6 10^3/uL (0.0-1.0); MONOCYTES % (AUTO) 9.1 %; NEUTROPHILS # (AUTO) 3.3 10^3/uL (1.5-6.6); NEUTROPHILS % (AUTO) 52.5 %; PLT - PLATELET COUNT 196 10^3/uL (130-450); RED BLOOD COUNT 4.34 10^6/uL (4.20-5.40); RED CELL DISTRIBUTION WIDTH 12.5 % (12.0-15.0); WHITE BLOOD COUNT 6.3 x10^3/uL (4.8-10.8)
[2020-04-29 12:27] LABS: ALBUMIN 3.3 g/dL (3.2-5.5); ALBUMIN/GLOBULIN RATIO 0.8 (1.0-2.2); ALKALINE PHOSPHATASE 76 IU/L (42-121); ALT ALANINE AMINOTRANSFERASE 22 IU/L (10-60); AST ASPARTATE AMINOTRANSFERASE 25 IU/L (10-42); BILIRUBIN,TOTAL 0.9 mg/dL (0.2-1.0); BUN - BLOOD UREA NITROGEN 41 mg/dL (6-20); CALCIUM 9.6 mg/dL (8.5-10.3); CARBON DIOXIDE - CO2 27 mmol/L (21-32); CHLORIDE 101 mmol/L (101-111); CHOL/HDL RATIO 5.2 (<4.4); CHOLESTEROL 187 mg/dL; CREATININE 1.5 mg/dL (0.4-1.0); GLUCOSE 187 mg/dL (70-100); HDL CHOLESTEROL 36 mg/dL; LDL CHOLESTEROL,CALCULATED 125 mg/dL; LDL/HDL RATIO 3.5 (<4.4); SODIUM 137 mmol/L (135-145); TOTAL PROTEIN 7.4 g/dL (6.7-8.2); VLDL CHOLESTEROL 26 mg/dL
[2020-04-29 12:28] LABS: HB2 TOTAL 14.2 g/dL; HEMOGLOBIN A1C % 8.6 % (4.6-6.2)
== END 2020-04-29 23:59 ==
LOC: LAB.R 11:10
PROVIDERS: ATTEND Nurse Practitioner Family
DX: E11.9 Type 2 diabetes mellitus without complications (principal); E78.5 Hyperlipidemia, unspecified; I10 Essential (primary) hypertension
CPT/HCPCS: 80053; 80061; 83036; 83721; 84443; 85025

== ENCOUNTER 2020-08-31 10:00 | Outpatient (CLI) | payer MEDICARE, OTHER ==
--- NOTE | 2020-08-31 19:10 | CONSULTATION NOTE ---
Palliative Care Follow Up - Referral Referring Provider: Valencia Curtis PA-C Time of Visit: [id number] Referral setting: Home Referral Reason: Dementia/Urinary Incontience frequency - Information Sources Records reviewed: Previous records reviewed History/Review of Systems obtained from: Patient, Family (daughterTatianna present) Exam limitations: Clinical condition (Memory deficit due to dementia) - History of Present Illness Update Brief HPI Update: This is a quinn 89-year-old female who was seen in follow-up today for her moderate dementia and increased urinary incontinence with her daughter/D Tatianna KINCAID present. The patient's has a history of diabetes mellitus type 2 and is insulin-dependent with chronic kidney disease. Per her daughter's report her blood glucose range has been stable overall. She had one high reported as 301 due to the prior evening she had a milkshake. No episode of hypoglycemia. No perceived weight loss. The patient's daughter reports that the patient's appetite had shifted. She has been 1 1 has always enjoyed breakfast and dinner with minimal at lunch. Now they have adapted and the patient consumes more at lunch versus dinner and she is back to a balance. The patient's daughter had previously contacted palliative care to discuss recent changes in the patient's behavior and urinary incontinence. The patient was saturating her bed with urine overnight. Since reduction of the patient's HCTZ to 12.5 mg daily and implementation of the patient avoiding large orlin ntities of liquids 1 hour prior to bedtime this had limited the patient overnight awakening and she is typically good with her pads and overnight depends until 8 AM the following morning. Since reduction of her HCTZ the patient's systolic blood pressure has been below 150. The patient denies any headaches or dizziness. No recent falls reports. No urinary tract symptoms or UTIs since initiation of cranberry supplementation per daughter's report. The patient herself denies any acute complaints. She is quite content with her current environment. She is well groomed sitting out of bed in her new recliner chair no evidence of distress. Patient has a past medical history that includes hypertension, hyperlipidemia, coronary artery disease, left lower extremity DVT, paroxysmal atrial fibri llation, dementia, type 2 diabetes mellitus insulin-dependent, ovarian cancer, chronic kidney disease stage III, breast cancer, frequent urinary tract infections, depression. Social History - Living Situation Living arrangement: At home Living Situation: With family (Daughter/D AGUSTÍNA, Tatianna and son-in-law, Aaron) Support System: Patient resides in a farm house with her daughter and son-in-law. The patient has 3 children, 2 boys and a girl. She is . Rest care is coming to the home twice a week for 2 hours of assistance with showering. The patient's daughter is presently going through the appropriate channels for the [place] program. The patient's daughter reports that the patient qualifies from a social aspect and they are working on the financial aspect to be enrolled in the program. The patient recently had a quinn visit from her youngest son, Jeffry and his gi rlfriend for a week. She was quite fatigued after the visit and reflects up on it finally. The patient son and girlfriend sent her a new recliner chair in the last week that provides lift assist that she has taken a fancy 2. The patient has a family dog, Enriqueta within the home who is quite friendly. Medications/Allergies - Medications Home Medications: Ambulatory Orders Medication Instructions Recorded Confirmed Apixaban [Eliquis] 5 mg PO BID 11/15/18 08/31/20 Cholecalciferol (Vitamin D3) 1 cap PO DAILY 11/15/18 08/31/20 [Vitamin D3] Cyanocobalamin (Vitamin B-12) 11/15/18 [Vitamin B-12] Insulin Glargine [Lantus Solostar] 35 units SQ BID 11/15/18 08/31/20 L.acid/L.casei/B.bif/B.colt/Fos 1 PO DAILY 11/15/18 [Probiotic Blend Capsule] Losartan [Cozaar] 100 mg PO DAILY 11/15/18 08/31/20 Metoprolol Succinate 200 mg PO DAILY 11/15/18 08/31/20 Multivitamin [Multiple Vitamins] 1 PO DAILY 11/15/18 [place]-3/Dha/Epa/Fish Oil [Fish Oil 1 PO DAILY 11/15/18 1,000 mg Softgel] Sertraline [Zoloft] 50 mg PO DAILY 11/15/18 08/31/20 hydroCHLOROthiazide 12.5 mg PO DAILY 11/15/18 08/31/20 [Hydrochlorothiazide] Omeprazole 40 mg PO DAILY 01/02/20 08/31/20 Tumeric 500 mg PO DAILY 01/02/20 08/31/20 Cranberry 500 mg PO BID 01/29/20 08/31/20 - Allergies Allergies/Adverse Reactions: Allergies Allergy/AdvReac Type Severity Reaction Status Date / Time ciprofloxacin [From Cipro] Allergy Hives Verified 01/02/20 16:52 atorvastatin AdvReac Unknown Verified 01/02/20 16:52 Corticosteroids AdvReac Unknown Verified 01/02/20 16:52 (Glucocorticoids) metformin AdvReac Unknown Verified 01/02/20 16:52 Review of Systems - Constitutional Constitutional: reports: Fatigue. denies: Fever, Weight loss - Eyes Eyes: reports: Vision loss - Ears, Nose & Throat Ears, Nose & Throat: reports: Hearing loss, Hearing aids (not present today) - Cardiovascular Cardiovascular: denies: Chest pain, Edema - Respiratory Respiratory: denies: Cough - Gastrointestinal Gastrointestinal: reports: Good appetite. denies: Constipation, Diarrhea, Vomiting - Genitourinary Genitourinary: reports: Incontinence, Nocturia (improved). denies: Dysuria - Musculoskeletal Musculoskeletal: reports: Assistive devices. denies: Joint pain - Integumentary Integumentary: denies: Rash - Neurological Neurological: reports: Memory problems - Psychiatric Psychiatric: reports: Depression (controlled) - Endocrine Endocrine: reports: Diabetes type 2 - Hematologic/Lymphatic Hematologic/Lymphatic: reports: Recurrent infections (history of frequent UTIs) - All Other Systems All Other Systems: reports: Reviewed and negative (Review of system is limited as patient is a poor historian due to dementia. Review of systems supplemented by the patient's daughter.) Physical Exam - Vital Signs Temperature: 36.3 C Pulse Rate: 63 O2 Saturation: 98 (on RA at rest) Blood Pressure: 121/81 (left wrist cuff) - Physical Exam General Appearance: positive: No acute distress, Alert, Other (sitting in recliner in common area, well groomed) Eyes Bilateral: positive: Normal inspection ENT: positive: No signs of dehydration Neck: positive: Trachea midline Cardiovascular: positive: Regular rate & rhythm, No murmur Respiratory: positive: No respiratory distress, Breath sounds nml. negative: Rales Abdomen: positive: Non-tender, Soft, Nml bowel sounds, Other (bladder nondistended to palpation) Skin: positive: No symptoms, Other (sacrum intact without erythema) Extremities: positive: No pedal edema, Other (moves all extremities x 4) Neurologic/Psychiatric: positive: Mood/affect nml, Disoriented to time, Other (ambulates with a cautious gait with her walker; pleasant and cheerful) Palliative Care - POLST Patient has POLST: Yes POLST Status: DNR, Comfort Measures Pain: No pain Constipation: No, Managed Performance Status: Patient is ambulatory and uses a Rollator within the home. She has a transport wheelchair to get out within the community. Due to the coronavirus the patient has been fairly restrictive within her home with limited visitors outside of her [place]. She requires assistance with grooming and hygiene. She is incontinent of bladder. No recent falls. FAST 6D - Palliative Care Discussion: The patient continues to have a slow functional and cognitive decline. Recent adjustment to her oral diuretic therapy and interventions to reduce her urinary quantity overnight have been successful for her comfort. The patient has been out out a urinary tract infection since initiation of cranberry supplementation for UTI prophylaxis which is a relief to both the patient and her daughter. The patient's daughter his hopeful that the [place] program will continue to move forward and she will attend caregiving classes. The patient and her daughter continue to recognize the patient's slow, continual decline. The patient does reminisce about the loss of her previous function but is engaged with pleasure and jackelyn in her daily life. She looks forward to treats that her son-in-law Aaron prepares, she also looks forward to speaking to her youngest son, Jeffry every Monday evening. She also continues to have a special tsai and engagement with her great-grandson, Brad. Impression and Recommendations - Palliative Care Impression: This is a quinn 89-year-old female with moderate direct nausea, F AST 6D, insulin-dependent diabetes who continues to have a slow functional and cognitive decline. Recent adjustments to behavioral modifications and having her HC TZ reduced to 12.5 mg reduced her nocturia and improvement of her comfort. Palliative care to continue to provide support, symptom management, and a assistance with transition to hospice when medically appropriate. Recommendations/Counseling Done: 1. Urinary incontinence and nocturia. Multifactorial due to progression of dementia, sedentary lifestyle and medication side effect. Patient has responded well to reduction of her HCTZ dose without adverse effects and reduction in her overnight voiding resulting in her comfort and reduction of fall risk. Continue to limit the patient's oral intake 1 hour prior to bed and encourage voiding prior to bedtime. Continue to monitor. 2. Hypertension with history of paroxysmal atrial fibrillation. No cardiac awareness. Continue losartan for hypertension, metoprolol for rate control, and HCTZ 12.5 mg for hypertension. On eliquis 5mg BID for anticoagulation. Patient has tolerated dose adjustment of HCTZ. Continue to monitor patient's blood pressure trends to determine if may taper off HCTZ as no underlying history of congestive heart failure. Goal blood pressure less than 150/80 given the patient's advanced age and desire to avoid orthostatic hypotensive event. Continue to monitor blood pressure trends and adjust antihypertensive medications as needed. 3. Insulin-dependent type 2 diabetes mellitus. No hypoglycemic awareness. Recent elevated blood glucose level of 301. Patient and daughter cannot typically attribute causative food to elevated blood glucose readings. Given the patient's advanced age, goal hemoglobin A1c is 7 to 8%. Continue current medication regiment as ordered. Discussed foot care and recommend that patient's daughter follow up with podiatry Judith DORSEY who provides services through [employer] for toenail trimming. Follow-up with outpatient pharmacy for influenza vaccine as patient is ambulatory. 4.History of frequent urinary tract infections. No recent UTIs. Continue good stefan-care due to urinary incontinence. Continue cranberry supplementation 500 mg twice daily for UTI prophylaxis. Continue to monitor. 5. Dementia. Chronic. Progressive. Supportive care. Fall precautions. No behavioral concerns reported by the daughter. On no disease modifying agents. Given the patient's advanced age, dementia, and chronic comorbidities a gradual decline is expected. Time Spent: F/u October 2020/November 2020 Total time spent 40 minutes with greater than 50% of this spent in counseling and coordination of care with patient and daughter, examination of patient, review of symptom management and anticipatory guidance. Disclaimer: The chart note was formulated using voice recognition technology and unfortunately sound alike errors may occur.
== END 2020-08-31 10:01 | disposition home or self-care (01) ==
LOC: PC 10:00
PROVIDERS: ATTEND Nurse Practitioner Family
DX: Z51.5 Encounter for palliative care (principal); R32 Unspecified urinary incontinence; R35.1 Nocturia; E11.22 Type 2 diabetes mellitus with diabetic chronic kidney disease; I12.9 Hypertensive chronic kidney disease with stage 1 through stage 4 chronic kidney disease, or unspecified chronic kidney disease; N18.30 Chronic kidney disease, stage 3 unspecified; F03.90 Unspecified dementia, unspecified severity, without behavioral disturbance, psychotic disturbance, mood disturbance, and anxiety; I48.0 Paroxysmal atrial fibrillation; Z79.4 Long term (current) use of insulin; Z79.01 Long term (current) use of anticoagulants; Z79.899 Other long term (current) drug therapy; Z87.440 Personal history of urinary (tract) infections; Z66 Do not resuscitate
CPT/HCPCS: 99349

== ENCOUNTER 2020-12-16 12:00 | Outpatient (CLI) | payer MEDICARE, OTHER ==
--- NOTE | 2020-12-16 18:01 | CONSULTATION NOTE ---
Palliative Care Follow Up - Referral Referring Provider: Dr. Jose Guevara Time of Visit: 2446-7341 Referral setting: Home Referral Reason: Dementia/Depression - Information Sources Records reviewed: Previous records reviewed History/Review of Systems obtained from: Patient, Family (daughterTatianna) Exam limitations: Clinical condition ( Dementia) - History of Present Illness Update Brief HPI Update: This is an 89-year-old female who was seen in follow-up today for her moderate dementia that is progressing and depressive symptoms within her home with her daughter/DPOATatianna present. The patient's daughter, Tatianna reports that the patient is sleeping more throughout the day. If she is not engaged with activity in the room she will often walk herself back to her bedroom to lay down and will fall asleep until she is awoken. Tatianna also noted to the patient seems to have her memory further back in time. She is not able to recall her short-term memory. She is also having difficulty following a story line and no longer is reading which was a former enjoyment of her hours. The patient does still attend and enjoy a her great grandsons visit in the home. The patient's daughter reports a localized rash under her left breast That occurs intermittently several times to a year that responds well to a topical ointment that the daughter is requesting for a refill. She finds it when she use this cream in for several days in a row that the rash typically resolves. The patient continues to enjoy consuming breakfast and will have a late lunch and it is hit or miss with dinner. Higher blood glucose range has been 94-295 fasting. Daughter is noting increased depressive symptoms as the patient's memory is declining and her ability to participate in daily activities is also waning. She continues to ambulate with a walker and does not have any recent falls reported by the family. The patient is seen out of bed in her lift chair well groomed and in no evidence of acute distress. Past Medical History: Patient has a past medical history that includes hypertension, hyperlipidemia, coronary artery disease, left lower extremity DVT, paroxysmal atrial fibrillation, dementia, type 2 diabetes mellitus insulin-dependent, ovarian cancer, chronic kidney disease stage III, breast cancer, frequent urinary tract infections, depression. Social History - Living Situation Living arrangement: At home Support System: Patient [place] in [place] farm [place] with her daughter and son-in-law. The patient has 3 children, 2 boys and a girl. She is . Rest care comes to the home twice a week for assistance with showering. The patient has a family dog, not made within the home and is quite friendly. Medications/Allergies - Medications Home Medications: Ambulatory Orders Medication Instructions Recorded Confirmed Apixaban [Eliquis] 5 mg PO BID 11/15/18 12/16/20 Cholecalciferol (Vitamin D3) 1 cap PO DAILY 11/15/18 12/16/20 [Vitamin D3] Cyanocobalamin (Vitamin B-12) 11/15/18 [Vitamin B-12] Insulin Glargine [Lantus Solostar] 35 units SQ BID 11/15/18 12/16/20 L.acid/L.casei/B.bif/B.colt/Fos 1 PO DAILY 11/15/18 [Probiotic Blend Capsule] Losartan [Cozaar] 100 mg PO DAILY 11/15/18 12/16/20 Metoprolol Succinate 200 mg PO DAILY 11/15/18 12/16/20 Multivitamin [Multiple Vitamins] 1 PO DAILY 11/15/18 Bastian-3/Dha/Epa/Fish Oil [Fish Oil 1 PO DAILY 11/15/18 1,000 mg Softgel] Sertraline [Zoloft] 50 mg PO DAILY 11/15/18 12/16/20 hydroCHLOROthiazide 12.5 mg PO DAILY 11/15/18 12/16/20 [Hydrochlorothiazide] Omeprazole 40 mg PO DAILY 01/02/20 12/16/20 Tumeric 500 mg PO DAILY 01/02/20 12/16/20 Cranberry 500 mg PO BID 01/29/20 12/16/20 Clotrimazole/Betamethasone Crm 1 applic TP . INSTRUCTED 12/16/20 12/16/20 [Lotrisone Cream] Sertraline [Zoloft] 12.5 mg PO DAILY 12/16/20 12/16/20 - Allergies Allergies/Adverse Reactions: Allergies Allergy/AdvReac Type Severity Reaction Status Date / Time ciprofloxacin [From Cipro] Allergy Hives Verified 01/02/20 16:52 atorvastatin AdvReac Unknown Verified 01/02/20 16:52 Corticosteroids AdvReac Unknown Verified 01/02/20 16:52 (Glucocorticoids) metformin AdvReac Unknown Verified 01/02/20 16:52 Review of Systems - Constitutional Constitutional: reports: Fatigue, Weight stable (daughter denies loss of weight and clothes are fitting well). denies: Fever - Eyes Eyes: denies: Irritation - Ears, Nose & Throat Ears, Nose & Throat: reports: Hearing loss - Cardiovascular Cardiovascular: denies: Chest pain, Edema - Respiratory Respiratory: denies: Cough - Gastrointestinal Gastrointestinal: denies: Abdominal pain, Vomiting - Genitourinary Genitourinary: reports: Incontinence. denies: Dysuria - Musculoskeletal Musculoskeletal: reports: Assistive devices. denies: Joint pain - Integumentary Integumentary: reports: Rash (under left breast) - Neurological Neurological: reports: General weakness, Memory problems - Psychiatric Psychiatric: reports: Depression - Endocrine Endocrine: reports: Diabetes type 2 - Hematologic/Lymphatic Hematologic/Lymph: Recurrent infections (history of frequent UTIs) - All Other Systems All Other Systems: reports: Reviewed and negative (Patient is a poor historian due to dementia. Review of systems supplemented by the patient's daughter.) Physical Exam - Vital Signs Temperature: 36.4 C Pulse Rate: 67 O2 Saturation: 97 (on RA) Blood Pressure: 131/62 (left wrist) - Physical Exam General Appearance: positive: No acute distress, Alert, Other (sitting in rec liner in common area, well groomed) Eyes Bilateral: positive: Normal inspection ENT: positive: No signs of dehydration Neck: positive: Trachea midline Cardiovascular: positive: Regular rate & rhythm, No murmur Respiratory: positive: No respiratory distress, Breath sounds nml Abdomen: positive: Non-tender, Soft, Nml bowel sounds Skin: positive: Other (breasts are not symmetric with left shorter than the right. Under left breast there is a circular patch that is well circumscribed with scaly edge similar to tinea corporis) Extremities: positive: No pedal edema, Other (moves all extremities x 4) Neurologic/Psychiatric: positive: Mood/affect nml, Disoriented to time, Other (pleasant and cheerful) Palliative Care - POLST Patient has POLST: Yes POLST Status: DNR, Comfort Measures Pain: No pain Performance Status: Patient is ambulatory and uses her Rollator within the home. She has not been out of the house in several months due to the coronavirus. She requires assistance with grooming and hygiene. She is incontinent of bladder. No recent falls. F AST 6D - Palliative Care Discussion: The patient is demonstrating evidence of further advancement of her dementia with her inability to follow stories that she previously enjoyed and sleeping more throughout the day. The patient's daughter is interested in knowing more regarding obtainment of the coronavirus vaccine and directed daughter to find her phase [email or web address] for further details. The patient has a localized patch under her left breast that has a periods of Aurea corporis and would benefit from topical treatment cotrimazole and betamethasone. Reviewed with the patient's daughter not to use more than 1 week to prevent steroid side effects with understanding verbalized. The patient is displaying some evidence of depressive symptoms and presently is on sertraline 50 mg. Daughter is hoping as well as the patient for a trial of an increase of her monotherapy to see if this boost her mood and if not effective are open to transitioning to a new SSRI for management of her symptoms. Impression and Recommendations - Palliative Care Impression: This is a 89-year-old female with moderate dementia, F AST 6D, insulin-dependent diabetic with further cognitive aggression of her dementia and underlying depression. She has a patch under her left breast that has the appearance of tenia corporis and would benefit from topical therapy. Daughter and patient are open to increasing patient's antidepressant medication for further management of her depressive symptoms. Palliative care to continue to provide support, symptom management and assistance with transition to hospice when medically appropriate. Recommendations/Counseling Done: 1. Tinea corporis in appearance under left breast. Initiate clotrimazole/betamethasone cream To be applied once to twice a day for no more than a week to reduce steroid side effects. Reviewed with the patient's daughter that due to the corticosteroid and the cream would want to do 1 week on, 1 week off. Rx sent to [facility]. Understanding verbalized. 2. Depression. Presently on sertraline 50 mg daily. Increase depressive symptoms. Increase to 62.5 mg by taking a half of a 25 mg sertraline tablet for a trial. Reviewed with patient's daughter it may take 2 to 4 weeks to see effect and approximately 6 weeks for full effect of medication with understanding verbalized. Reviewed purpose, dose and side effects of sertraline with the patient's daughter and in agreement to proceed. If no noted improvement then would consider switching to a new SSRI for management of symptomatology and patient's daughter in agreement. 3. Insulin-dependent type 2 diabetes mellitus. No hypoglycemic awareness. Recent blood glucose trend has been 94-2 95. A goal given the patient's advanced age for hemoglobin A1c is 7 to 8%. Continue current medication regimen as ordered. 4. Dementia. Chronic. Progressive. Supportive care. Fall precautions. On no behavioral concerns reported by the daughter including sundowning. On no disease modifying agents. Given the patient's advanced age, dementia and chronic comorbidities a gradual decline is expected. 5. Advanced care planning. Patient has POLST in place as DN AR with comfort measures. Time Spent: Total time spent 50 minutes with greater than 50% of the spent in counseling coordination of care with the patient and daughter, examination of patient, review of medications purpose dose and side effects, review of symptom management and anticipatory guidance. Disclaimer: The chart note was formulated using voice recognition technology and unfortunately sound alike errors may occur.
== END 2020-12-16 12:01 | disposition home or self-care (01) ==
LOC: PC 12:00
PROVIDERS: ATTEND Nurse Practitioner Family
DX: Z51.5 Encounter for palliative care (principal); R21 Rash and other nonspecific skin eruption; F32.9 Major depressive disorder, single episode, unspecified; I12.9 Hypertensive chronic kidney disease with stage 1 through stage 4 chronic kidney disease, or unspecified chronic kidney disease; E11.22 Type 2 diabetes mellitus with diabetic chronic kidney disease; N18.30 Chronic kidney disease, stage 3 unspecified; F03.90 Unspecified dementia, unspecified severity, without behavioral disturbance, psychotic disturbance, mood disturbance, and anxiety; Z79.4 Long term (current) use of insulin; Z66 Do not resuscitate
CPT/HCPCS: 99349

== ENCOUNTER 2020-12-29 12:05 | Outpatient (CLI) | payer MEDICARE, OTHER ==
--- NOTE | 2020-12-29 17:40 | CONSULTATION NOTE ---
Palliative Care Follow Up - Referral Referring Provider: Dr. Jose Guevara Time of Visit: Initiated 1207 Referral setting: Home Referral Reason: Sore gums - Information Sources Records reviewed: RN notes reviewed History/Review of Systems obtained from: Patient, Family (daughter, Tatianna) Exam limitations: Clinical condition (Advanced dementia) - History of Present Illness Update Brief HPI Update: This is an 89-year-old female who was seen and evaluated today within her home at the request of her daughter for acute evaluation of sore gums that have been present for approximately the last 3 days with her daughter, Tatianna present. The patient previously maintained her oral care but as her advancement of her dementia has progressed she has not been maintaining her oral hygiene with brushing and this is not something that the patient's daughter has overseen in recent weeks. The patient has not brushed her teeth or used mouthwash. Approximately 3 nights ago the patient was noted to be restless and reporting that her mouth hurt. The patient's daughter provided Motrin approximately 400 mg which helped. During the day the patient was not complaining of pain but the daughter noted that the patient's appetite had decreased and she was nibbling more. The patient's daughter attempted softer foods but this did not increase the patient's oral intake. As the patient was being more restless at night they added a camera in the bedroom for additional monitoring. The patient herself presently denies any gum pain. She denies any difficulty swallowing. There has been no coughing associated during meals. The patient's daughter, Tatianna did not want to proceed with brushing the patient's teeth until evaluated by this PRINT PRESS OPERATOR. The patient is seen sitting up in her recliner in the living room, well groomed and in no acute distress. Past Medical History: Patient has a past medical history that includes hypertension, hyperlipidemia, coronary artery disease, left lower extremity DVT, proximal atrial fibrillation, dementia, type 2 diabetes mellitus insulin-dependent, ovarian cancer, chronic kidney disease stage III, breast cancer, frequent urinary tract infections, depression. Social History - Living Situation Living arrangement: At home Support System: Patient resides in a farm house with her daughter and son-in-law, Aaron. The patient has 3 children, 2 boys and a girl. She is . Breast care comes to the home twice a week for assistance with showering. The patient's daughter, Tatianna is point of contact with telephone number [phone] Medications/Allergies - Medications Home Medications: Ambulatory Orders Medication Instructions Recorded Confirmed Apixaban [Eliquis] 5 mg PO BID 11/15/18 12/16/20 Cholecalciferol (Vitamin D3) 1 cap PO DAILY 11/15/18 12/16/20 [Vitamin D3] Cyanocobalamin (Vitamin B-12) 11/15/18 [Vitamin B-12] Insulin Glargine [Lantus Solostar] 35 units SQ BID 11/15/18 12/16/20 L.acid/L.casei/B.bif/B.colt/Fos 1 PO DAILY 11/15/18 [Probiotic Blend Capsule] Losartan [Cozaar] 100 mg PO DAILY 11/15/18 12/16/20 Metoprolol Succinate 200 mg PO DAILY 11/15/18 12/16/20 Multivitamin [Multiple Vitamins] 1 PO DAILY 11/15/18 Jayton-3/Dha/Epa/Fish Oil [Fish Oil 1 PO DAILY 11/15/18 1,000 mg Softgel] Sertraline [Zoloft] 50 mg PO DAILY 11/15/18 12/16/20 hydroCHLOROthiazide 12.5 mg PO DAILY 11/15/18 12/16/20 [Hydrochlorothiazide] Omeprazole 40 mg PO DAILY 01/02/20 12/16/20 Tumeric 500 mg PO DAILY 01/02/20 12/16/20 Cranberry 500 mg PO BID 01/29/20 12/16/20 Clotrimazole/Betamethasone Crm 1 applic TP . INSTRUCTED 12/16/20 12/16/20 [Lotrisone Cream] Sertraline [Zoloft] 12.5 mg PO DAILY 12/16/20 12/16/20 Chlorhexidine Gluconate [Peridex] 15 ml BID MDD swish and spit x 7 12/29/20 12/29/20 days - Allergies Allergies/Adverse Reactions: Allergies Allergy/AdvReac Type Severity Reaction Status Date / Time ciprofloxacin [From Cipro] Allergy Hives Verified 01/02/20 16:52 atorvastatin AdvReac Unknown Verified 01/02/20 16:52 Corticosteroids AdvReac Unknown Verified 01/02/20 16:52 (Glucocorticoids) metformin AdvReac Unknown Verified 01/02/20 16:52 Review of Systems - Constitutional Constitutional: reports: Poor appetite (see HPI). denies: Fever - Ears, Nose & Throat Ears, Nose & Throat: reports: Hearing loss. denies: Dentures (not wearing her partial dentures for "some time") - Respiratory Respiratory: denies: Cough - Gastrointestinal Gastrointestinal: denies: Vomiting - Musculoskeletal Musculoskeletal: reports: Assistive devices. denies: Joint pain - Neurological Neurological: reports: General weakness, Memory problems - Psychiatric Psychiatric: reports: Depression - Endocrine Endocrine: reports: Diabetes type 2 - Hematologic/Lymphatic Hematologic/Lymph: Recurrent infections (history of frequent UTIs) - All Other Systems All Other Systems: reports: Reviewed and negative (Patient is a poor historian due to dementia. Review of systems supplemented by the patient's daughter.) Physical Exam - Vital Signs Temperature: 36.4 C Pulse Rate: 66 O2 Saturation: 98 (on RA) Blood Pressure: 123/79 (left wrist cuff) - Physical Exam General Appearance: positive: No acute distress, Alert, Other (sitting in recliner in common area, well groomed) Eyes Bilateral: positive: Normal inspection ENT: positive: No signs of dehydration, Other (poor denition with missing teeth. On present teeth noted plaque build-up. Erythema noted to bottom central and lateral incisors without bleeding or tenderness to palpation) Neck: positive: Trachea midline. negative: Lymphadenopathy (R), Lymphadenopathy (L) Cardiovascular: positive: Regular rate & rhythm, No murmur Respiratory: positive: No respiratory distress, Breath sounds nml Extremities: positive: No pedal edema Neurologic/Psychiatric: positive: Mood/affect nml, Disoriented to time, Other (pleasant and cheerful) Palliative Care - POLST Patient has POLST: Yes POLST Status: DNR, Comfort Measures - Palliative Care Discussion: Patient is demonstrating signs and symptoms of mild gingivitis more specifically to her lower teeth that are remaining. Reviewed with the patient and daughter the need for routine oral care that includes the use of an electric toothbrush for gentle brushing. Patient is open to having her daughter assist with dental hygiene. As the patient is symptomatic we will initiate chlorhexidine oral rinse to be utilized least for 7 days at least as an antiseptic. Impression and Recommendations - Palliative Care Impression: This is an 89-year-old female with moderate dementia, F AST 60, insulin- dependent diabetes presenting with new gingivitis due to poor oral hygiene. Patient and daughter are open to reinitiating routine oral care with an electric toothbrush moving forward. Palliative care to continue right support, symptom management and assistance with transition to hospice when medically appropriate. Recommendations/Counseling Done: 1. Mild gingivitis noted to lower gums. No evidence of bleeding or lymphadenopathy on assessment. Strongly encourage good, routine oral care. Patient is going to allow the daughter to assist with dental care with use of an electric toothbrush moving forward. Initiate chlorhexidine 0.12% oral rinse 15 mL swish and spit twice a day for 7 days for 30 seconds at a time and to at least not eat or drink 30 minutes after use. Also reviewed for any discomfort would avoid NSAIDs as the patient is on a DOAC and this would increase risk of bleeding with daughter verbalizing understanding. If any pain management needed would initiate acetaminophen 500 mg every 6 hours for pain not to exceed 3000 mg of Tylenol daily from all sources reviewed with daughter. 2. Dementia. Chronic. Progressive. Supportive care. Fall precautions. No disease modifying agents. Recent episode of sundowning and family is utilizing a camera in the patient's bedroom for monitoring overnight. No recent falls. Given the patient's LVH, dementia and chronic comorbidities a gradual Polo is expected. Time Spent: CPT 13741 Plan of care reviewed at length with the patient's daughter, Tatianna with questions answered and addressed. We will follow-up as previously scheduled or sooner if any signs or symptoms of infection or no improvement with comes with understanding verbalized. Disclaimer: The chart note was formulated using voice recognition technology and unfortunately sound alike errors may occur.
== END 2020-12-29 12:06 | disposition home or self-care (01) ==
LOC: PC 12:05
PROVIDERS: ATTEND Nurse Practitioner Family
DX: Z51.5 Encounter for palliative care (principal); K05.10 Chronic gingivitis, plaque induced; F03.90 Unspecified dementia, unspecified severity, without behavioral disturbance, psychotic disturbance, mood disturbance, and anxiety; E11.630 Type 2 diabetes mellitus with periodontal disease; I12.9 Hypertensive chronic kidney disease with stage 1 through stage 4 chronic kidney disease, or unspecified chronic kidney disease; E11.22 Type 2 diabetes mellitus with diabetic chronic kidney disease; N18.30 Chronic kidney disease, stage 3 unspecified; Z79.4 Long term (current) use of insulin; Z66 Do not resuscitate
CPT/HCPCS: 99348

== ENCOUNTER 2021-01-20 10:20 | Outpatient (CLI) | payer MEDICARE, OTHER ==
--- NOTE | 2021-01-20 14:37 | CONSULTATION NOTE ---
Palliative Care Follow Up - Referral Referring Provider: Dr. Guevara Time of Visit: [id number] Referral setting: Home Referral Reason: Dementia/Gingivitis/Depression/HTN - Information Sources Records reviewed: Previous records reviewed History/Review of Systems obtained from: Patient, Family (daughter, Tatianna) Exam limitations: Clinical condition (Advanced dementia) - History of Present Illness Update Brief HPI Update: This is an 89-year-old female who was seen and evaluated today with in her home for follow-up regarding her advancing dementia without behavioral disturbances, depression, gingivitis, and hypertension. The patient was last seen and evaluated acutely in early December due to complaints of discomfort when eating and was noted to have evidence of gingivitis. She was initiated on chlorhexidine mouthwash using twice a day with swish and spit. The patient has not been amenable to her daughter assisting with oral care with use of an electric toothbrush. The patient relays that she finds the chlorhexidine mouthwash "tastes bad." Her daughter reports that her oral intake has returned regarding textures and she is "eating good." The patient's most favorite meal is breakfast. The daughter reports that consuming dinner is going well approximately 50% of the time. No appreciated weight loss. The patient is demonstrating evidence of some underlying depression despite being on sertraline 62.5 mg daily. Her daughter reports since the recent dose increase there has been improvement in the patient's depressive symptoms. However, the patient remains with underlying sadness closer to the evening time as she reports that she does not want to "be a burden to her family." The rash under her left breast has completely resolved with talk of bold treatment and has not reoccurred. The patient's daughter has clotrimazole/betamethasone on hand if reoccurs. The patient's daughter, Tatianna reports that the patient is demonstrating increased confusion particularly in the evenings. She is able to be redirected. No further evidence of behavioral disturbances. The patient's daughter is using a baby monitor in the bedroom overnight to ensure the patient's safety and this provides relief to the patient's daughter and reduces her anxiety. Her blood pressure has been ranging 107-143/57-86. No history of recent falls. She denies dizziness or syncope upon rising from sitting to standing. She is presently on HCTZ 12.5 mg, losartan, and metoprolol with Eliquis for anticoagulation due to her history of atrial fibrillation. The patient herself is eating sitting up in her recliner in the living room, well groomed and in no acute distress. She denies any acute concerns regarding her health during evaluation today and is quite pleasantly confused. Past Medical History: Patient has a past medical history that includes hypertension, hyperlipidemia, coronary artery disease, left lower extremity DVT, paroxysmal atrial fibrillation, dementia, type 2 diabetes mellitus, insulin-dependent, ovarian cancer, chronic kidney disease stage III, breast cancer, frequent urinary tract infections, depression. Social History - Living Situation Living arrangement: At home Support System: Patient grew up in [facility] before she relocated to [place], [place] with her first and her children to be close to her best friend, Conchita. She eventually remarried. She resides in a farm house with her daughter and son-in-law Bill. The patient has 3 children, 2 boys and a girl. She is . [facility] comes to the home twice a week for assistance with katelyn. The patient's daughter, Tatianna is the point of contact with telephone number [phone]. The patient has a special tsai and relationship with her great-grandson Brad. Medications/Allergies - Medications Home Medications: Ambulatory Orders Medication Instructions Recorded Confirmed Apixaban [Eliquis] 5 mg PO BID 11/15/18 12/16/20 Cholecalciferol (Vitamin D3) 1 cap PO DAILY 11/15/18 12/16/20 [Vitamin D3] Cyanocobalamin (Vitamin B-12) 11/15/18 [Vitamin B-12] Insulin Glargine [Lantus Solostar] 35 units SQ BID 11/15/18 12/16/20 L.acid/L.casei/B.bif/B.colt/Fos 1 PO DAILY 11/15/18 [Probiotic Blend Capsule] Losartan [Cozaar] 100 mg PO DAILY 11/15/18 12/16/20 Metoprolol Succinate 200 mg PO DAILY 11/15/18 12/16/20 Multivitamin [Multiple Vitamins] 1 PO DAILY 11/15/18 [place]-3/Dha/Epa/Fish Oil [Fish Oil 1 PO DAILY 11/15/18 1,000 mg Softgel] Sertraline [Zoloft] 50 mg PO DAILY 11/15/18 12/16/20 hydroCHLOROthiazide 12.5 mg PO DAILY 11/15/18 12/16/20 [Hydrochlorothiazide] Omeprazole 40 mg PO DAILY 01/02/20 12/16/20 Tumeric 500 mg PO DAILY 01/02/20 12/16/20 Cranberry 500 mg PO BID 01/29/20 12/16/20 Clotrimazole/Betamethasone Crm 1 applic TP . INSTRUCTED 12/16/20 12/16/20 [Lotrisone Cream] Sertraline [Zoloft] 12.5 mg PO DAILY 12/16/20 12/16/20 Chlorhexidine Gluconate [Peridex] 15 ml BID MDD swish and spit x 7 12/29/20 12/29/20 days - Allergies Allergies/Adverse Reactions: Allergies Allergy/AdvReac Type Severity Reaction Status Date / Time ciprofloxacin [From Cipro] Allergy Hives Verified 01/02/20 16:52 atorvastatin AdvReac Unknown Verified 01/02/20 16:52 Corticosteroids AdvReac Unknown Verified 01/02/20 16:52 (Glucocorticoids) metformin AdvReac Unknown Verified 01/02/20 16:52 Review of Systems - Constitutional Constitutional: reports: Fatigue (taking more naps during the day), Weight stable. denies: Fever - Eyes Eyes: denies: Irritation - Ears, Nose & Throat Ears, Nose & Throat: reports: Hearing loss, Other (see HPI). denies: Dentures (not wearing her partial dentures for "some time"), Mouth lesions, Bleeding gu ms, Dry mouth - Cardiovascular Cardiovascular: denies: Chest pain, Edema - Respiratory Respiratory: denies: Cough, Wheezing - Gastrointestinal Gastrointestinal: reports: Other (fair appetite that has returned to baseline, see HPI). denies: Constipation, Diarrhea, Vomiting - Genitourinary Genitourinary: reports: Incontinence. denies: Dysuria - Musculoskeletal Musculoskeletal: reports: Assistive devices. denies: Joint pain - Integumentary Integumentary: denies: Rash (resolved) - Neurological Neurological: reports: General weakness, Memory problems. denies: Headache, Dizziness - Psychiatric Psychiatric: reports: Depression - Endocrine Endocrine: reports: Diabetes type 2 (blood glucose levels 101-182) - Hematologic/Lymphatic Hematologic/Lymph: reports: Recurrent infections (history of frequent UTIs) - All Other Systems All Other Systems: reports: Reviewed and negative (Patient is a poor historian due to dementia. Review of systems supplemented by the patient's daughter.) Physical Exam - Vital Signs Temperature: 36.2 C Pulse Rate: 66 O2 Saturation: 94 Blood Pressure: 110/61 (left wrist) - Physical Exam General Appearance: positive: No acute distress, Alert, Other (sitting in recliner in common area, well groomed) Eyes Bilateral: positive: Normal inspection, Other (no evidence of gum erythema) ENT: positive: No signs of dehydration, Other (poor denition with missing teeth. On present teeth noted plaque build-up. Erythema noted to bottom central and lateral incisors without bleeding or tenderness to palpation) Neck: positive: Trachea midline Cardiovascular: positive: Regular rate & rhythm (with occasional PVC noted). negative: Other Respiratory: positive: No respiratory distress, Breath sounds nml Abdomen: positive: Non-tender, Soft, Nml bowel sounds Skin: negative: Rash (resolved to left breast) Extremities: positive: No pedal edema Neurologic/Psychiatric: positive: Mood/affect nml (does express sadness in the evenings, most nights), Disoriented to time, Other (pleasant and cheerful) Comments/Other: standing 118/82, HR 87 Palliative Care - POLST Patient has POLST: Yes POLST Status: DNR, Comfort Measures Pain: No pain Tiredness/Fatigue: Moderate (4-6) (napping more during the day) Nausea: None Anorexia: Mild (1-3) Dyspnea: None Depression: Mild (1-3) Anxiety: None Sleep: Sleeps well Performance Status: Patient is ambulatory with her Rollator without any recent falls. She is able to self feed. She is incontinent of bowel and bladder. She requires assistance with grooming and hygiene. FAS T6E - Palliative Care Discussion: The patient continues to have a slow cognitive decline with the daughter recognizing that the patient requires more redirection and cueing which is more pronounced in the evenings. No reports of behavioral disturbances and the daughter has found the use of a baby monitor reassuring overnight for monitoring. The patient has had improvement of her underlying gingivitis and strongly encouraged the patient to allow the daughter to use a soft bristle toothbrush as she is reluctant to allow an electric toothbrush to prevent reoccurrence of her symptoms and she is in agreement. She does display more depressive symptoms in the evening which she attributes to being a burden to her family and recognizes that they take excellent care of her. She would benefit from further dose adjustment of her sertraline as with that mild increase that was last performed was beneficial. Her blood pressure appears to be well controlled and she has had a decreased oral intake and would benefit from further dose reduction of her antihypertensive medications most pacifically her HCTZ and monitor for response moving forward. Results - Lab Results Lab results reviewed: Yes Lab and Imaging Results: 04/29/2020: Sodium 137, Potassium 4.6, BUN 41, Cr 1.5, GFR 33, HgA1C 8.6%, AST 25, ALT 22, Alk phos 76, Albumin 3.3, TSH 2.02 Impression and Recommendations - Palliative Care Impression: This is a quinn 89 year old female with progressing dementia, FAST 6E, insulin dependent diabetic who continues with a slow functional and cognitive decline with mild depressive symptoms. She would benefit from further increase of her sertraline for management of her depressive symptoms. She has had some decreased oral intake and would benefit from discontinuation of her HCTZ for comfort, prevention of dehydration and reduction of nocturia. Palliative care will continue to provide support, care coordination, symptom management and assist with a transition to hospice when appropriate. Recommendations/Counseling Done: 1. HTN with history of paroxysmal afib. No cardiac awareness. Given decreased oral intake and noted blood pressure with orthostatic obtainment with discontinue HCTZ and monitor the patient's reponse. Continue losartan for h ypertension and metoprolol for rate control due to paroxysmal afib. Goal blood pressure reviewed with daughter as less than 150/90 given the patient's advanced age and desire to avoid orthostatic hypotensive event. On anticoagulation with eliquis. Continue to monitor BP trends and adjust antihypertensive medications as needed. 2. Mild gingivitis to lower gums. Resolved. Continue to encourage oral care and patient in agreement to trial soft bristle toothbrush and allow her daughter to assist nightly. Continue chlorhexidine 0.12% oral rinse BID until gone with swish and spit and then transition to OTC mouth wash to utlize after brushing, such as closys silver to use once daily and not eat or drink 30 minutes after the dose. CTM. 3. Insulin-dependent type 2 diabetes mellitus. No hypoglycemic awareness. No noted lows with hypoglycemic events. Last HgA1C 8.6% 04/29/2020. If PCP wishes to have repeat labwork then requested that labwork be sent prior to next home visit and [employer] will obtain in apprx 4 weeks. Goal hemoglobin A1c is 7 to 8% given the patient's advanced age and reduction of hypoglycemic events. Continue current medication regimen as ordered. 4. Depression. Presently on sertraline 62.5mg daily. Continues with depressive symptoms in the evening despite overall improvement of her mood. Increase sertraline to 75mg daily (50mg and 25mg tablets of sertrailine combined for total daily dose of 75mg). Reviewed purpose, dose and side effects of sertraline with the patient's daughter and in agreement to proceed. New Rx for sertraline 25mg daily sent to mail order pharmacy. 5. Dementia. Chronic. Progressive. Supportive care. Fall precautions. No disease modifying agents. Increased confusion in the evenings and continues to be easily redirectable. No recent falls. Given the patient's dementia and chronic comorbidities a gradual decline is expected. Total time spent 40 minutes with greater than 50% of this spent in counseling and coordination of care with patient and daughterTatianna; examination of patient; review of progression of dementia course and provided handout on progression; review of medication management and dose adjustments with questions answered and addressed; review of symptom management and anticipatory guidance.
== END 2021-01-20 10:21 | disposition home or self-care (01) ==
LOC: PC 10:20
PROVIDERS: ATTEND Nurse Practitioner Family
DX: Z51.5 Encounter for palliative care (principal); F03.90 Unspecified dementia, unspecified severity, without behavioral disturbance, psychotic disturbance, mood disturbance, and anxiety; F32.9 Major depressive disorder, single episode, unspecified; K05.10 Chronic gingivitis, plaque induced; I12.9 Hypertensive chronic kidney disease with stage 1 through stage 4 chronic kidney disease, or unspecified chronic kidney disease; E11.22 Type 2 diabetes mellitus with diabetic chronic kidney disease; N18.30 Chronic kidney disease, stage 3 unspecified; I48.0 Paroxysmal atrial fibrillation; H91.90 Unspecified hearing loss, unspecified ear; R32 Unspecified urinary incontinence; Z66 Do not resuscitate; Z79.4 Long term (current) use of insulin; Z79.01 Long term (current) use of anticoagulants; Z79.899 Other long term (current) drug therapy; Z91.81 History of falling; Z86.718 Personal history of other venous thrombosis and embolism
CPT/HCPCS: 99349

== ENCOUNTER 2021-02-17 10:20 | Outpatient (CLI) | payer MEDICARE, OTHER ==
--- NOTE | 2021-02-17 17:18 | CONSULTATION NOTE ---
Palliative Care Follow Up - Referral Referring Provider: Dr. Jose Guevara Time of Visit: [id number] Referral setting: Home Referral Reason: Dementia/Depression/HTN - Information Sources Records reviewed: Previous records reviewed History/Review of Systems obtained from: Patient, Family (daughter, Tatianna) Exam limitations: Clinical condition (Advanced Dementia) - History of Present Illness Update Brief HPI Update: This is an 89-year-old female who was seen and evaluated today within her home for follow-up regarding her advanced dementia without behavioral disturbances, depression, and hypertension with her daughter, Tatianna present. The patient continues to report some mild gum irritation. She was recently jania cyndie for gingivitis. She is consistent about using her oral mouthwash on a daily basis per the daughter's report. However, she is not open to using electric toothbrush or the new toothbrush that her daughter got her. Her daughter recently obtained a new her soft bristle brush that they are going to try tonight. The patient's daughter and family have changed the texture of the patient's food to be softer including increased fish consumption which the patient enjoys for limitation of any gum irritation. Since last evaluation the patient has now developed fecal incontinence in addition to her urinary and continence. No reports of nausea, vomiting or abdominal pain. Her appetite remains good. The patient continues on Lantus 35 units twice daily. Her blood glucose levels in the morning upon review have ranged 106 -225. In the evening her blood glucose has ranged 129- 288. Her last hemoglobin A1c was obtained 01/2020 and was 8.6%. No reports of hypoglycemia. The patient is sleeping most of the day. Her sertraline was increased to 75 mg on last evaluation with overall positive response with her mood. The patient is looking forward to being able to have more activity outside of the home and enjoying warmer and sunnier weather. The patient has a history of hypertension. On last evaluation HCTZ 12.5 mg was discontinued. She continues on losartan and metoprolol with Eliquis for anticoagulation due to her history of atrial fibrillation. No reports of dizziness or recent falls. Has tolerated discontinuation of HCTZ. Is seen sitting up in her recliner in the living room, well groomed and in no acute distress. She recently had a haircut. Past Medical History: Patient has a past medical history that includes hypertension, hyperlipidemia, coronary artery disease, left lower extremity DVT, paroxysmal atrial fibrillation, dementia, type 2 diabetes mellitus, insulin-dependent, ovarian cancer, chronic kidney disease stage III, breast cancer, frequent urinary tract infections, depression. Social History - Living Situation Living arrangement: At home Living Situation: With family (daughter Tatianna and DAVID Aaron) Support System: Patient grew up in [facility] [place] before she relocated to [place], [place] with her first and her children to be close to her best friend, Conchita. She eventually remarried. She resides in a farm house with her daughter and son-in-law Aaron. The patient has 3 children, 2 boys and a girl. She is . [facility] comes to the home twice a week for assistance with showering. The patient's daughter, Tatianna is the point of contact with telephone number [phone]. The patient has a special tsai and relationship with her great-grandson Brad and he calls her Curly. The patient's eldest son, Akash recently came for a visit to the home after being estranged. The patient was quite joyful after this visit and it brightened her day. Tatianna now feels that she can call upon her brother, Akash for assistance in the future. Medications/Allergies - Medications Home Medications: Ambulatory Orders Medication Instructions Recorded Confirmed Apixaban [Eliquis] 5 mg PO BID 11/15/18 12/16/20 Cholecalciferol (Vitamin D3) 1 cap PO DAILY 11/15/18 12/16/20 [Vitamin D3] Cyanocobalamin (Vitamin B-12) 11/15/18 [Vitamin B-12] Insulin Glargine [Lantus Solostar] 35 units SQ BID 11/15/18 12/16/20 L.acid/L.casei/B.bif/B.colt/Fos 1 PO DAILY 11/15/18 [Probiotic Blend Capsule] Losartan [Cozaar] 100 mg PO DAILY 11/15/18 12/16/20 Metoprolol Succinate 200 mg PO DAILY 11/15/18 12/16/20 Multivitamin [Multiple Vitamins] 1 PO DAILY 11/15/18 [place]-3/Dha/Epa/Fish Oil [Fish Oil 1 PO DAILY 11/15/18 1,000 mg Softgel] Sertraline [Zoloft] 50 mg PO DAILY 11/15/18 12/16/20 Omeprazole 40 mg PO DAILY 01/02/20 12/16/20 Tumeric 500 mg PO DAILY 01/02/20 12/16/20 Cranberry 500 mg PO BID 01/29/20 12/16/20 Clotrimazole/Betamethasone Crm 1 applic TP . INSTRUCTED 12/16/20 12/16/20 [Lotrisone Cream] Sertraline [Zoloft] 25 mg PO DAILY 12/16/20 12/16/20 Chlorhexidine Gluconate [Peridex] 15 ml BID MDD swish and spit x 7 12/29/20 12/29/20 days - Allergies Allergies/Adverse Reactions: Allergies Allergy/AdvReac Type Severity Reaction Status Date / Time ciprofloxacin [From Cipro] Allergy Hives Verified 02/17/21 17:25 atorvastatin AdvReac Unknown Verified 02/17/21 17:25 Corticosteroids AdvReac Unknown Verified 02/17/21 17:25 (Glucocorticoids) metformin AdvReac Unknown Verified 02/17/21 17:25 Review of Systems - Constitutional Constitutional: reports: Fatigue (sleeping more throughout the day), Weight stable (weight today appx 174lb with home scale). denies: Fever - Eyes Eyes: denies: Irritation - Ears, Nose & Throat Ears, Nose & Throat: reports: Hearing loss, Other (sore gums, see HPI). denies: Mouth lesions, Dry mouth - Cardiovascular Cardiovascular: denies: Chest pain, Edema, Lightheadedness - Respiratory Respiratory: denies: Cough - Gastrointestinal Gastrointestinal: reports: Other (improved appetite; +fecal incontinence). denies: Constipation, Diarrhea, Vomiting - Genitourinary Genitourinary: reports: Incontinence. denies: Dysuria - Musculoskeletal Musculoskeletal: reports: Assistive devices. denies: Joint pain - Integumentary Integumentary: denies: Rash - Neurological Neurological: reports: General weakness, Memory problems. denies: Headache, Dizziness - Psychiatric Psychiatric: reports: Depression - Endocrine Endocrine: reports: Diabetes type 2 - Hematologic/Lymphatic Hematologic/Lymph: reports: Recurrent infections (history of frequent UTIs) - All Other Systems All Other Systems: reports: Reviewed and negative (Patient is a poor historian due to dementia. Review of systems supplemented by the patient's daughter, Tatianna) Physical Exam - Vital Signs Temperature: 35.9 C Pulse Rate: 63 O2 Saturation: 98 (on RA) Blood Pressure: 145/74 (left arm) - Physical Exam General Appearance: positive: No acute distress, Alert, Other (sitting in recliner in common area, well groomed) Eyes Bilateral: positive: Normal inspection ENT: positive: No signs of dehydration, Other (poor denition with missing teeth. No evidence of gum erythema) Neck: positive: Trachea midline Cardiovascular: positive: Regular rate & rhythm Respiratory: positive: No respiratory distress, Breath sounds nml. negative: Rales Abdomen: positive: Non-tender, Soft, Nml bowel sounds, Obese Skin: negative: Rash (No rash under bilateral breasts) Extremities: positive: No pedal edema Neurologic/Psychiatric: positive: Mood/affect nml (improved), Disoriented to time, Other (pleasant and cheerful) Palliative Care - POLST Patient has POLST: Yes POLST Status: DNR, Comfort Measures Performance Status: Patient is ambulatory and uses a Rollator within the home. There is good open space within the home to allow for the use of the Rollator. No recent falls. She also has a transport wheelchair for use out in the community. She requires assistance with grooming and hygiene. She is incontinent of bladder and bowel. FAST 6E - Palliative Care Discussion: The patient continues to be a resistant to the recent toothbrush that her daughter obtained as well as an electric toothbrush for prevention of recurrent gingivitis. She is allowing routine mouthwash and is open to trying a new soft bristle toothbrush later this evening. She continues to have a slow, cognitive and functional decline as noted by the patient's daughter. No reports of behavioral disturbances and the daughter continues to utilize a baby monitoring that provides reassurance overnight for monitoring of the patient's. Now, the patient is presenting with fecal incontinence and the daughter recognizes that this is further progression of the patient's underlying dementia. Reassurance and normalization of the daughter's feelings provided today. The patient recently had a quinn visit with her previously estranged eldest son. She looks forward to her weekly Zoom calls with her youngest son and his girlfriend. She has had improvement of her depressive symptoms with recent dose increase of her sertraline. The daughter is looking forward to warmer weather so the patient may enjoy sitting outside has she greatly enjoys the garden as well as car rides. Impression and Recommendations - Palliative Care Impression: Is a quinn 89-year-old female with progressive dementia, FAS T6 ED, insulin- dependent diabetic who continues with a slow, functional and cognitive decline with improvement of depressive symptoms. She has done well with the increase of her sertraline for management of her depressive symptoms as well as reinitiating contact by her previously estranged eldest son. Palliative care will continue to provide support, care coordination, symptom management and assistance with transition to hospice when appropriate. Recommendations/Counseling Done: 1. Hypertension with history of paroxysmal A. fib. No cardiac awareness. Has tolerated discontinuation of HCTZ. Continue losartan and metoprolol as ordered. Goal blood pressure less than 150/90 given the patient's advanced age and desire to avoid an orthostatic hypotensive event. On L to coagulation with Eliquis. Continue to monitor blood pressure trends and adjust antihypertensive medications as needed. 2. Depression. Mood appears to be stable. Continue sertraline 75 mg daily. Continue to encourage things that the patient finds enjoyable such as upcoming outings for a car ride or looking at the [employer] outside. 3. Mild mild gingivitis. No evidence of inflammation. Continue the use of [id number] mouthwash at least once daily. Trial new soft bristle toothbrush with the daughter to assist. Previously, the patient has been resistant to an electric toothbrush and previous toothbrushes with the daughter's assistance. 4. Insulin-dependent type 2 diabetes mellitus. No evidence of hypoglycemic awareness. None last hemoglobin A1c 8.6% on 04/29/2020. No communication from PCP regarding obtainment of lab work. We will plan to obtain hemoglobin A1c on next evaluation for monitoring. Given the patient's advanced age and goal to avoid hypoglycemic events goal hemoglobin A1c is 7 to 8%. Continue current medication regimen as ordered. 5. CKD stage III. Multifactorial due to age, diabetes mellitus type 2 and hypertension. Avoid nephrotoxic medications. Obtain BMP at next evaluation to monitor renal function. 6. Dementia. Chronic. Progressive. Supportive care. Fall precautions. No behavioral concerns reported by the patient's daughter. On no disease modifying agents. Given the patient's advanced age and chronic comorbidities a gradual decline is expected. Continue to normalize the patient's daughter's feelings regarding progression of dementia. Provided contact number to the patient's [facility] Cov[facility] vaccine administered to the patient within her home setting as she is not homebound senior and is extremely taxing effort to have her leave her home environment. Total time spent 50 minutes with greater than 50% of the spent in counseling and coordination of care with the patient and daughter, Tatianna; examination of the patient; review of progression of dementia; review of medication management and obtainment at the labs at next evaluation; review of symptom management and anticipatory guidance. Disclaimer: The chart note was formulated using voice recognition technology and unfortunately sound alike errors may occur.
== END 2021-02-17 10:21 | disposition home or self-care (01) ==
LOC: PC 10:20
PROVIDERS: ATTEND Nurse Practitioner Family
DX: Z51.5 Encounter for palliative care (principal); I48.0 Paroxysmal atrial fibrillation; I12.9 Hypertensive chronic kidney disease with stage 1 through stage 4 chronic kidney disease, or unspecified chronic kidney disease; E11.22 Type 2 diabetes mellitus with diabetic chronic kidney disease; N18.30 Chronic kidney disease, stage 3 unspecified; K05.10 Chronic gingivitis, plaque induced; F32.9 Major depressive disorder, single episode, unspecified; F03.90 Unspecified dementia, unspecified severity, without behavioral disturbance, psychotic disturbance, mood disturbance, and anxiety; R32 Unspecified urinary incontinence; R15.9 Full incontinence of feces; Z79.4 Long term (current) use of insulin; Z79.01 Long term (current) use of anticoagulants; Z66 Do not resuscitate
CPT/HCPCS: 99349

== ENCOUNTER 2021-03-31 12:49 | Outpatient (CLI) | payer MEDICARE, OTHER ==
[2021-03-31 13:01] LABS: ESTIMATED AVERAGE GLUCOSE 134 mg/dL (70-100); HEMOGLOBIN A1c% 6.3 % (4.27-6.07)
[2021-03-31 13:02] LABS: BASOPHILS % (AUTO) 0.5 %; EOSINOPHILS # (AUTO) 0.2 10^3/uL (0.0-0.7); EOSINOPHILS % (AUTO) 2.4 %; HCT - HEMATOCRIT 44.6 % (37.0-47.0); LYMPHOCYTES # (AUTO) 1.9 10^3/uL (1.5-3.5); LYMPHOCYTES % (AUTO) 29.3 %; MEAN CORPUSCULAR HGB CONC 31.4 g/dL (32.0-36.0); MEAN CORPUSCULAR VOLUME 98.7 fL (81.0-99.0); MEAN PLATELET VOLUME 9.9 fL (7.9-10.8); MONOCYTES # (AUTO) 0.6 10^3/uL (0.0-1.0); MONOCYTES % (AUTO) 8.9 %; NEUTROPHILS # (AUTO) 3.9 10^3/uL (1.5-6.6); NEUTROPHILS % (AUTO) 58.6 %; PLT - PLATELET COUNT 213 10^3/uL (130-450); RED BLOOD COUNT 4.52 10^6/uL (4.20-5.40); RED CELL DISTRIBUTION WIDTH 12.6 % (12.0-15.0); WHITE BLOOD COUNT 6.6 x10^3/uL (4.8-10.8)
== END 2021-03-31 12:50 | disposition home or self-care (01) ==
LOC: LAB.R 12:49
PROVIDERS: ATTEND Nurse Practitioner Family
DX: E11.9 Type 2 diabetes mellitus without complications (principal); I10 Essential (primary) hypertension
CPT/HCPCS: 83036; 85025

== ENCOUNTER 2021-03-31 14:48 | Outpatient (CLI) | payer MEDICARE, OTHER ==
--- NOTE | 2021-03-31 17:14 | CONSULTATION NOTE ---
Palliative Care Follow Up - Referral Referring Provider: Dr.Mark Guevara Time of Visit: [id number] Referral setting: Home Referral Reason: HTN/Dementia/Diabetes Mellitus Type II - Information Sources History/Review of Systems obtained from: Patient, Family (daughter, Tatianna) Exam limitations: Clinical condition (Advanced Dementia) - History of Present Illness Update Brief HPI Update: This is an 89-year-old female who was seen and evaluated today within her home for follow-up regarding advanced dementia without behavioral disturbances, hyp ertension, diabetes mellitus type 2 and for lab work to be obtained at the request of her PCP with her daughter, Tatianna present. The patient continues on Lantus 35 units twice daily. Her blood glucose levels have demonstrated an overall decrease with the lower levels both in the morning and the evening. Her blood glucose levels in the morning have been as follows 145, 97, 137, 158, 76, 84, 94, 115. Her blood glucose levels in the evening have been 136, 232, 135, 105, 93, 259, 101, 79. The patient's daughter notes that when the patient has lower blood glucose levels that she has more confusion to be noted. Daughter does not note any diaphoresis or increase in thirst. The patient has had some episodes of constipation that have positively responded to the use of Dukas 8 and senna combination 50 mg / 8.6 mg per the daughter's report. The patient is no longer having any complaints of gum discomfort during she was recently treated for gingivitis. She is using the oral mouthwash over-the- counter daily and they have found a new soft bristle toothbrush and the patient is allowing her daughter to assist with light brushing in the evenings. Her appetite is becoming more picky than noted previously. Sometimes she may not consume much of dinner. Her daughter tries to provide soft meals that the patient is familiar with. The patient is resistant to pasta and rice that may be indicative to her longstanding appointments due to her control for her diabetes mellitus. She continues to love breakfast. The daughter reports that she is sleeping more during the day with no napping. She typically is up by 10 AM and if she naps later in the evening the daughter will wake her up to be present at dinner at 5 PM. The patient is presently off of HCTZ and she has not had any lower extremity edema. No history of recent falls or reports of dizziness. The patient is seen sitting up in her recliner chair in the living room, well groomed and in no acute distress. Past Medical History: [facility] has a past medical history that includes hypertension, hyperlipidemia, coronary artery disease, left lower extremity DVT, paroxysmal atrial fibrillation, dementia, type 2 diabetes mellitus, insulin-dependent, ovarian cancer, chronic kidney disease stage III, breast cancer, frequent urinary tract infections, depression. Social History - Living Situation Living arrangement: At home Living Situation: With family (daughter Tatianna and DAVID Aaron) Support System: Patient grew up in [facility] before she relocated to [place], [place] with her first and her children to be close to her best friend, Conchita. She eventually remarried. She resides in a farm house with her daughter and son-in-law Aaron. The patient has 3 children: 2 boys and a girl. She is . [facility] comes to the home twice a week for assistance with showering. The patient's daughter, Tatianna is the point of contact with telephone number [phone]. The patient has a special tsai and relationship with her great-grandson Brad and he calls her Curly. The patient's youngest son, Jeffry and his girlfriend plan to visit next month for the patient's 89th birthday and this is something that she is looking forward to. Medications/Allergies - Medications Home Medications: Ambulatory Orders Medication Instructions Recorded Confirmed Apixaban [Eliquis] 5 mg PO BID 11/15/18 12/16/20 Cholecalciferol (Vitamin D3) 1 cap PO DAILY 11/15/18 12/16/20 [Vitamin D3] Cyanocobalamin (Vitamin B-12) 11/15/18 [Vitamin B-12] Insulin Glargine [Lantus Solostar] 32 units SQ BID 11/15/18 12/16/20 L.acid/L.casei/B.bif/B.clot/Fos 1 PO DAILY 11/15/18 [Probiotic Blend Capsule] Losartan [Cozaar] 100 mg PO DAILY 11/15/18 12/16/20 Metoprolol Succinate 200 mg PO DAILY 11/15/18 12/16/20 Multivitamin [Multiple Vitamins] 1 PO DAILY 11/15/18 [place]-3/Dha/Epa/Fish Oil [Fish Oil 1 PO DAILY 11/15/18 1,000 mg Softgel] Sertraline [Zoloft] 50 mg PO DAILY 11/15/18 12/16/20 Omeprazole 40 mg PO DAILY 01/02/20 12/16/20 Tumeric 500 mg PO DAILY 01/02/20 12/16/20 Cranberry 500 mg PO BID 01/29/20 12/16/20 Clotrimazole/Betamethasone Crm 1 applic TP . INSTRUCTED 12/16/20 12/16/20 [Lotrisone Cream] Sertraline [Zoloft] 25 mg PO DAILY 12/16/20 12/16/20 Sennosides/Docusate Sodium 1 tab PO DAILY PRN 03/31/21 03/31/21 [Docuzen 8.6-50 mg Tablet] - Allergies Allergies/Adverse Reactions: Allergies Allergy/AdvReac Type Severity Reaction Status Date / Time ciprofloxacin [From Cipro] Allergy Hives Verified 02/17/21 17:25 atorvastatin AdvReac Unknown Verified 02/17/21 17:25 Corticosteroids AdvReac Unknown Verified 02/17/21 17:25 (Glucocorticoids) metformin AdvReac Unknown Verified 02/17/21 17:25 Review of Systems - Constitutional Constitutional: reports: Fatigue (sleeping more throughout the day), Weight stable (weight today appx 180lb today on home scale). denies: Fever - Eyes Eyes: denies: Corrective lenses - Ears, Nose & Throat Ears, Nose & Throat: reports: Hearing loss. denies: Dentures, Mouth lesions, Bleeding gums, Dry mouth - Cardiovascular Cardiovascular: denies: Chest pain, Edema - Respiratory Respiratory: denies: Cough - Gastrointestinal Gastrointestinal: reports: Constipation (recently occurred and responded to OTC colace/senna), Other (patient is more picky in in food choices. +fecal incontinence). denies: Diarrhea, Vomiting - Genitourinary Genitourinary: reports: Incontinence. denies: Dysuria - Musculoskeletal Musculoskeletal: reports: Assistive devices. denies: Joint pain - Integumentary Integumentary: denies: Rash - Neurological Neurological: reports: General weakness, Memory problems. denies: Headache, Dizziness - Psychiatric Psychiatric: reports: Depression - Endocrine Endocrine: reports: Diabetes type 2 - Hematologic/Lymphatic Hematologic/Lymph: reports: Recurrent infections (history of frequent UTIs) - All Other Systems All Other Systems: reports: Reviewed and negative (Patient is a poor historian due to dementia. Review of systems supplemented by the patient's daughter, Tatianna) Physical Exam - Vital Signs Temperature: 36.2 C Pulse Rate: 67 O2 Saturation: 97 (on RA) Blood Pressure: 145/70 (left arm) - Physical Exam General Appearance: positive: No acute distress, Alert, Other (sitting in recliner in common area, well groomed) Eyes Bilateral: positive: Normal inspection ENT: positive: No signs of dehydration, Other (poor denition with missing teeth. No evidence of gum erythema.). negative: Oral lesions Neck: positive: Trachea midline. negative: Lymphadenopathy (R), Lymphadenopathy (L) Cardiovascular: positive: Regular rate & rhythm Respiratory: positive: No respiratory distress, Breath sounds nml Abdomen: positive: Non-tender, Soft, Nml bowel sounds, Obese Skin: positive: No symptoms Extremities: positive: No pedal edema Neurologic/Psychiatric: positive: Mood/affect nml, Disoriented to time, Other (pleasantly confused. will answer questions when directly addressed.) Palliative Care - POLST Patient has POLST: Yes POLST Status: DNR, Comfort Measures Pain: No pain Performance Status: FAS T6E - Palliative Care Discussion: The patient has had improvement of her underlying gingivitis with routine use of [id number] mouthwash as well as allowing her daughter to assist with brushing her teeth in the evening with a soft bristle toothbrush. The patient continues to demonstrate a slow, cognitive and functional decline. The patient is sleeping more during the day. She is not had any noted weight loss and presently her weight is 180 pounds. Her appetite waxes and wanes and she is more picky in her food choices than she had been previously. The patient's daughter continues to be extremely supportive in providing comfort and care to the patient. The patient's blood glucose levels are noted to have some lows both in the morning and in the evening. As the patient is having some cognitive changes with these lows and her risk for hypoglycemia with a potential adverse event such as a fall will reduce her Lantus dosing to 32 units twice daily. Lab work obtained today with CBC and hemoglobin A1c with results to follow. Results - Lab Results Lab and Imaging Results: 03/31/2021--pending Impression and Recommendations - Palliative Care Impression: This is a quinn 89-year-old female with progressive dementia, FAS T6 ED, insulin-dependent diabetes mellitus with a slow, functional and cognitive decline. She is having increased lower blood glucose level readings in the setting of increased confusion and therefore will decrease her Lantus dosing to 32 units twice daily. The patient had lab work obtained today including hemoglobin A1c for further evaluation. Palliative care will continue to provide support port, care coordination, symptom manage meant and assistance with transition to hospice when appropriate. Recommendations/Counseling Done: 1. Insulin-dependent type 2 diabetes mellitus. Patient does not have hypoglycemic awareness however, when she is having noted lows in her blood glucose level her daughter notes increased confusion. Her last hemoglobin A1c 8.6% on 04/29/2020. Obtain hemoglobin A1c today and will follow with results. Given the patient's advanced age and desire to avoid hypoglycemic events we will decrease her Lantus to 32 units twice daily. Goal hemoglobin A1c given the patient's age is 7 to 8%. Provided contact for inhome nail care, SUNITA Douglass phone number. Patient's daughter to obtain microalbumin urine and drop off at lab when obtained with specimen provided. Continue to monitor and adjust medication regimen. 2. Poor oral dentition with history of gingivitis. No evidence of inflammation. Continue use of [id number] mouthwash at least once daily. Continue to utilize soft bristle toothbrush the daughter to assist gently brushing at least once daily. 3. Hypertension with a history of paroxysmal atrial fibrillation. No cardiac awareness. No lower extremity edema. No longer on HCTZ. Continue losartan and metoprolol as ordered. Goal blood pressure is less than 150/90 given the patient's advanced age and desire to avoid an orthostatic hypotensive event. On anticoagulation with Eliquis. Continue to monitor blood pressure trends and adjust antihypertensive medications. If the patient's fall risk begins to increase we will have a discussion with the patient and her daughter about risk versus benefits of continuation of oral anticoagulant. 4. Dementia. Chronic. Progressive. Supportive care. Fall precautions. No behavioral concerns reported by the patient's daughter. On no disease modifying agents. Given the patient's advanced age and chronic comorbidities a gradual Polo is expected. Continue to provide support to the patient and her daughter in the home setting. 5.Advance care planning. Patient is pleasantly confused and quite content with then her present surroundings. She is looking forward to a visit from her youngest son, Jeffry in April 2020 with a celebration of her 89th birthday. He is like she is looking forward to celebrating her 89th birthday. Her daughter continues to wish to focus on comfort measures within the home environment. Total time spent 60 minutes with greater than 50% of this spent in counseling and coordination of care with daughter and patient; labdraw; examination of patient; review of symptom management and anticipatory guidance. Disclaimer: The chart note was formulated using voice recognition technology and unfortunately sound alike errors may occur.
== END 2021-03-31 14:49 | disposition home or self-care (01) ==
LOC: PC 14:48
PROVIDERS: ATTEND Nurse Practitioner Family
DX: Z51.5 Encounter for palliative care (principal); E11.22 Type 2 diabetes mellitus with diabetic chronic kidney disease; N18.30 Chronic kidney disease, stage 3 unspecified; I12.9 Hypertensive chronic kidney disease with stage 1 through stage 4 chronic kidney disease, or unspecified chronic kidney disease; F03.90 Unspecified dementia, unspecified severity, without behavioral disturbance, psychotic disturbance, mood disturbance, and anxiety; Z79.4 Long term (current) use of insulin; Z66 Do not resuscitate
CPT/HCPCS: 99350